=== PATIENT | female | born 1945 ===

== ENCOUNTER 2017-10-13 22:39 | Emergency (ER) | payer MEDICARE, OTHER ==
--- NOTE | 2017-10-14 00:19 | ED PDOC ---
HPI: Abdomen Time Seen by Provider: 10/13/17 23:26 Chief Complaint (Nursing): Abdominal Pain Chief Complaint (Provider): Abdominal Pain History Per: Patient History/Exam Limitations: no limitations Onset/Duration Of Symptoms: Days (x3 weeks) Current Symptoms Are (Timing): Still Present Location Of Pain/Discomfort: Diffuse Quality Of Discomfort: "Pain" Associated Symptoms: Constipation Additional Complaint(s): 72 year old female with a history of dm, htn, seizure and end-stage renal disease reports to the ED complaining of diffuse abdominal pain and constipation onset 3 weeks. Patient reports she has not had a bowel movement in 3 weeks, but has not taken anything for the constipation. She states she has associated rectal pain and decreased appetite but denies nausea, vomiting, urinary symptoms, black or bloody stools. Patient is on dialysis. PMD Dr. Gu Past Medical History Reviewed: Historical Data, Nursing Documentation, Vital Signs Vital Signs: Last Vital Signs Temp 98.4 F 10/14/17 02:04 Pulse 88 10/14/17 02:04 Resp 18 10/14/17 02:04 BP 130/69 10/14/17 02:04 Pulse Ox 100 10/14/17 02:04 - Medical History PMH: Diabetes, Gastritis, HTN, End Stage Renal Disease (Hemodialysis M, W, F), Chronic Kidney Disease, Seizures Denies: Alzheimer's Disease, Anemia, Anxiety, Arthritis, Asthma, Atrial Fibrillation, Bipolar Disorder, Bronchitis, CAD, Cardia Arrhythmia, CHF, COPD, Crohn's Disease, Dementia, Depression, Diverticulitis, Emphysema, Fractures, Gall Bladder Disease, HIV, Hypercholesterolemia, Hyperthyroidism, Hypothyroidism , Kidney Stones, Migraine, Mitral Valve Prolapse, Multiple Sclerosis, Osteoporosis, Pancreatitis, Paranoia, Parkinson's Disease, Peripheral Edema, Pneumonia, Post Traumatic Stress Disorder, Pulmonary Embolism, Rheumatoid Arthritis, Schizophrenia, Sickle Cell Disease, Sexually Transmitted Disease, Sleep Apnea, TIA - Surgical History Surgical History: Denies: Pacemaker Other surgeries: Left AV fistula - Family History Family History: States: No Known Family Hx - Social History Current smoker - smoking cessation education provided: No Ex-Smoker (has not smoked in the last 12 months): No Alcohol: None Drugs: Denies - Immunization History Hx Tetanus Toxoid Vaccination: No Hx Influenza Vaccination: No Hx Pneumococcal Vaccination: No - Home Medications Home Medications: Ambulatory Orders Medication Instructions Recorded Insulin Aspart Mix [novolog Mix 10 unit SC BID 04/20/14 70/30] Phenytoin Sodium Extended 100 mg PO TID 04/20/14 [Dilantin] Amoxicillin [Amoxil 500 mg Cap] 500 mg PO BID 08/05/17 Butalbital/Aspirin/Caffeine 1 tab PO Q6 PRN 08/05/17 [Uhdwmm-Parevtm-Ejmfs 50-325-40] Levofloxacin [Levaquin] 500 mg PO DAILY 08/05/17 Omeprazole 20 mg PO BID 08/05/17 Polyethylene Glycol 3350 [Miralax] 17 g PO QAM PRN #7 pkg 10/14/17 - Allergies Allergies/Adverse Reactions: Allergies Allergy/AdvReac Type Severity Reaction Status Date / Time No Known Allergies Allergy Verified 10/13/17 22:54 Review of Systems ROS Statement: Except As Marked, All Systems Reviewed And Found Negative Gastrointestinal: Positive for: Abdominal Pain, Constipation Physical Exam - Reviewed Nursing Documentation Reviewed: Yes Vital Signs Reviewed: Yes - Physical Exam Appears: Positive for: Non-toxic, In Acute Distress (painful) Head Exam: Positive for: ATRAUMATIC, NORMOCEPHALIC Skin: Positive for: Warm, Dry ENT: Negative for: Pharyngeal Erythema, Tonsillar Exudate Neck: Positive for: Painless ROM, Supple Cardiovascular/Chest: Positive for: Regular Rate, Rhythm Respiratory: Positive for: Normal Breath Sounds. Negative for: Respiratory Distress Gastrointestinal/Abdominal: Positive for: Tenderness (mild diffuse tenderness to palpation ), Distended (softly). 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 Negative for: Deformity Lymphatic: Negative for: Adenopathy Neurologic/Psych: Positive for: Alert. Negative for: Motor/Sensory Deficits - Laboratory Results Result Diagrams: 10/13/17 23:55 10/13/17 23:55 Medical Decision Making Medical Decision Making: Time: 23:38 Initial Impression: abdominal Differential diagnoses include but are not limited to: constipation, obstruction , colitis, or diverticulitis Initial Plan: --CMP --Lact acid -- Lipase --Urine dip --CBC with differentials --Obstructive Series XR --Occult Blood, Stool Scribe Attestation: Documented by Britany Silverman, acting as a scribe for Kaylee Cotton MD Provider Scribe Attestation: All medical record entries made by the Scribe were at my direction and personally dictated by me. I have reviewed the chart and agree that the record accurately reflects my personal performance of the history, physical exam, medical decision making, and the department course for this patient. I have also personally directed, reviewed, and agree with the discharge instructions and disposition. Disposition - Clinical Impression Clinical Impression: Constipation - Disposition Disposition: Transfer of Care Disposition Time: 00:00 Condition: STABLE Prescriptions: Polyethylene Glycol 3350 [Miralax] 17 g PO QAM PRN #7 pkg PRN Reason: Constipation Instructions: Constipation in Adults Forms: [employer] (Greek) Print Language: GIBRALTARIAN Patient Signed Over To: Matty Perez Handoff Comments: Pending ER workup, reassessment and final disposition
[2017-10-14 00:23] LABS: BASO # 0.1 K/uL (0.0-0.2); EOS # 0.2 K/uL (0.0-0.7); EOS % 2.1 % (0.0-4.0); HEMOGLOBIN 12.3 g/dL (12.0-16.0); LYMPH # 1.7 K/uL (1.0-4.3); LYMPH % 16.8 % (20.0-40.0); MEAN CELL VOLUME 89.1 fl (81.0-99.0); MEAN CORPUSCULAR HGB CONC 32.5 g/dL (33.0-37.0); MEAN PLATELET VOLUME 9.9 fl (7.2-11.7); MONO # 1.2 K/uL (0.0-0.8); MONO % 12.2 % (0.0-10.0); NEUT # 6.9 K/uL (1.8-7.0); NEUT % 67.9 % (50.0-75.0); RBC 4.25 Mil/uL (3.80-5.20); RED CELL DISTRIBUTION WIDTH 17.6 % (11.5-14.5); WHITE BLOOD COUNT 10.2 K/uL (4.8-10.8)
--- NOTE | 2017-10-14 00:27 | ED PDOC ---
- Laboratory Results Result Diagrams: 10/13/17 23:55 10/13/17 23:55 Medical Decision Making Medical Decision Making: Time: 00:00 --Patient signed out to this provider by Dr. Cotton, pending XR, labs and reevaluation, Time: 00:45 --Chest series shows no active disease --Abdomen series shows gross amounts of stool in colon and rectum, but no free air or fluid bubbles. Time: 1:50 --Labs showed no clinically significant results except elevated creatinine, which is consistent with end stage renal disease. Patient feels better after complete enema and had a large bowel movement. She is ready for discharge home. Diagnosis constipation. Scribe Attestation: Documented by Britany Silverman, acting as a scribe for Matty Perez MD Provider Scribe Attestation: All medical record entries made by the Scribe were at my direction and personally dictated by me. I have reviewed the chart and agree that the record accurately reflects my personal performance of the history, physical exam, medical decision making, and the department course for this patient. I have also personally directed, reviewed, and agree with the discharge instructions and disposition. Disposition - Clinical Impression Clinical Impression: Constipation - POA Present On Arrival: None - Disposition Disposition: Routine/Home Disposition Time: 01:50 Condition: STABLE Prescriptions: Polyethylene Glycol 3350 [Miralax] 17 g PO QAM PRN #7 pkg PRN Reason: Constipation Instructions: Constipation in Adults Forms: [employer] (Kenyan) Print Language: GRENADIAN
[2017-10-14 00:29] LABS: ALB/GLOB RATIO 1.1 (1.0-2.1); ALBUMIN 4.1 g/dL (3.5-5.0); CALCIUM 9.1 mg/dL (8.4-10.2)
[2017-10-14 02:05] VITALS: BP 130/69; PULSE 88; RESP 18; TEMP 98.4; O2SAT 100
--- NOTE | 2017-10-14 10:07 | RAD ---
Date of service: 10/14/2017 PROCEDURE: Radiographs of the chest and abdomen (obstructive series) HISTORY: abd pain r/o sbo COMPARISON: Chest radiograph 08/05/2017. TECHNIQUE: AP radiograph of the chest, with upright and supine radiographs of the abdomen. FINDINGS: CHEST: Lungs: No infiltrate bilaterally. Limited linear fibrotic changes are reiterated at the inferior left lung zone. Cardiovascular: Stable mild cardiomegaly. No definite pulmonary vascular congestion. Pleura: No pleural fluid. No pneumothorax. Other findings: Left axilla/proximal upper extremity wallstents. ABDOMEN AND PELVIS: Bowel: Nonobstructive bowel gas pattern is appreciated. Prominent fecal loading is seen throughout the colon and may indicate constipation. Free air: None. Bones: Unremarkable. Other findings: No definite abnormal internal calcifications. IMPRESSION: 1. Nonobstructive bowel gas pattern, however, prominent fecal loading throughout the colon may indicate constipation. No free intraperitoneal gas. 2. Stable mild cardiomegaly. No pulmonary vascular congestion. Limited fibrosis left base laterally.
== END 2017-10-14 02:04 | disposition home or self-care (01) ==
LOC: H.ER 22:39
DX: K59.00 Constipation, unspecified (principal); N18.6 End stage renal disease; Z99.2 Dependence on renal dialysis; I12.0 Hypertensive chronic kidney disease with stage 5 chronic kidney disease or end stage renal disease; Z79.4 Long term (current) use of insulin; Z79.82 Long term (current) use of aspirin
CPT/HCPCS: 74022; 80053; 83605; 83690; 85025; 99284; G0328

== ENCOUNTER 2017-10-15 22:42 | Emergency (ER) | payer MEDICARE, OTHER ==
--- NOTE | 2017-10-16 01:26 | ED PDOC ---
HPI: Abdomen Time Seen by Provider: 10/15/17 22:53 Chief Complaint (Nursing): GI Problem Chief Complaint (Provider): GI Problem History Per: Patient History/Exam Limitations: no limitations Onset/Duration Of Symptoms: Days (x3) Current Symptoms Are (Timing): Still Present Additional Complaint(s): 72 year old female arrives to ED with complaint of constipation associated with mild lower abdominal discomfort and rectal pain ongoing for 3 days. Reports she normally has a BM QD. Patient states she was given Rx for constipation, which she took today, but with no improvement. Of note, patient is due for hemodialysis tomorrow. Otherwise: (-) fever, (-) chills, (-) nausea, (-) vomiting or (-) urinary symptoms. PMD: Dr. Noreen Gu Past Medical History Reviewed: Historical Data, Nursing Documentation, Vital Signs Vital Signs: Last Vital Signs Temp 98.9 F 10/15/17 22:45 Pulse 81 10/15/17 22:45 Resp 16 10/15/17 22:45 BP 187/83 H 10/15/17 22:45 Pulse Ox 99 10/16/17 01:37 - Medical History PMH: Diabetes, Gastritis, HTN, End Stage Renal Disease (Hemodialysis M, W, F), Chronic Kidney Disease, Seizures Denies: Alzheimer's Disease, Anemia, Anxiety, Arthritis, Asthma, Atrial Fibrillation, Bipolar Disorder, Bronchitis, CAD, Cardia Arrhythmia, CHF, COPD, Crohn's Disease, Dementia, Depression, Diverticulitis, Emphysema, Fractures, Gall Bladder Disease, HIV, Hypercholesterolemia, Hyperthyroidism, Hypothyroidism , Kidney Stones, Migraine, Mitral Valve Prolapse, Multiple Sclerosis, Osteoporosis, Pancreatitis, Paranoia, Parkinson's Disease, Peripheral Edema, Pneumonia, Post Traumatic Stress Disorder, Pulmonary Embolism, Rheumatoid Arthritis, Schizophrenia, Sickle Cell Disease, Sexually Transmitted Disease, Sleep Apnea, TIA - Surgical History Surgical History: Denies: Pacemaker - Family History Family History: States: Unknown Family Hx - Social History Current smoker - smoking cessation education provided: No Ex-Smoker (has not smoked in the last 12 months): No Alcohol: None Drugs: Denies - Immunization History Hx Tetanus Toxoid Vaccination: No Hx Influenza Vaccination: No Hx Pneumococcal Vaccination: No - Home Medications Home Medications: Ambulatory Orders Medication Instructions Recorded Insulin Aspart Mix [novolog Mix 10 unit SC BID 01/30/15 70/30] Phenytoin Sodium Extended 100 mg PO TID 04/20/14 [Dilantin] Amoxicillin [Amoxil 500 mg Cap] 500 mg PO BID 08/05/17 Butalbital/Aspirin/Caffeine 1 tab PO Q6 PRN 08/05/17 [Cfdufz-Evjnjwi-Nhgbg 50-325-40] Levofloxacin [Levaquin] 500 mg PO DAILY 08/05/17 Omeprazole 20 mg PO BID 08/05/17 Polyethylene Glycol 3350 [Miralax] 17 g PO QAM PRN #7 pkg 10/14/17 Polyethylene Glycol 3350 [Miralax] 17 pow PO DAILY #20 each 10/16/17 - Allergies Allergies/Adverse Reactions: Allergies Allergy/AdvReac Type Severity Reaction Status Date / Time No Known Allergies Allergy Verified 10/13/17 22:54 Review of Systems ROS Statement: Except As Marked, All Systems Reviewed And Found Negative Constitutional: Negative for: Fever, Chills Gastrointestinal: Positive for: Abdominal Pain (lower), Constipation, Rectal Pain. Negative for: Nausea, Vomiting Genitourinary Female: Negative for: Dysuria, Incontinence, Hematuria Physical Exam - Reviewed Nursing Documentation Reviewed: Yes Vital Signs Reviewed: Yes - Physical Exam Comments: GENERAL APPEARANCE: Patient is awake, alert, oriented x 3, in no distress. SKIN: Warm, dry; (-) cyanosis. EYES: (-) conjunctival pallor, (-) scleral icterus. ENMT: Mucous membranes moist. NECK: (-) tenderness, (-) stiffness, (-) lymphadenopathy. CHEST AND RESPIRATORY: (-) rales, (-) rhonchi, (-) wheezes; breath sounds equal bilaterally. HEART AND CARDIOVASCULAR: (-) irregularity; (-) murmur, (-) gallop. ABDOMEN AND GI: (+) Mild distention, (+) soft. Bowel sounds active; (-) tenderness. (-) guarding, (-) rebound, (-) palpable masses, (-) CVA tenderness. RECTAL: Performed with DIE MECHANIC present as screen handler. (+) Hard stools, (-) fecal impaction, (-) guaiac test. EXTREMITIES: (-) deformity, (-) edema, (+) distal pulses. NEURO AND PSYCH: Mental status as above; (-) focal findings. - ECG O2 Sat by Pulse Oximetry: 99 (RA) Pulse Ox Interpretation: Normal Medical Decision Making Medical Decision Making: Initial Impression: Abdominal pain; constipation Initial Plan: * Xray obstructive series * Enulose 20gm PO * Fleet enema 135ml MI Time: 2340 --Xray obstructive series: interpreted by PA. Moderate constipation noted. Non- specific bowel patterns. On re-evaluation, patient reports improvement of symptoms, denies any abdominal pain, patient had a few BMs in the ER. On exam, patient remains AAOx3, in no acute distress. Diagnostic results d/w the patient in great detail. Diagnosis of constipation d/ w the patient. Advised to increase intake of fiber rich foods and do some light daily exercise such as 30 mins of brisk walking Based on history, exam and diagnostic results, plan will be for outpatient follow up. Patient instructed to follow-up with pmd in 1-2 days without fail. Advised to take medication as prescribed. Return to the emergency room at any time for any new or worsening symptoms. Patient states she fully agrees with and understands discharge instructions. States that she agrees with the plan and disposition. Verbalized and repeated discharge instructions and plan. I have given the patient opportunity to ask any additional questions. Scribe Attestation: Documented by Shirley Radford, acting as a scribe for Chen Grande PA-C. Provider Scribe Attestation: All medical record entries made by the Scribe were at my direction and personally dictated by me. I have reviewed the chart and agree that the record accurately reflects my personal performance of the history, physical exam, medical decision making, and the department course for this patient. I have also personally directed, reviewed, and agree with the discharge instructions and disposition. Disposition - Clinical Impression Clinical Impression: Constipation - Patient ED Disposition Is Patient to be Admitted: No Counseled Patient/Family Regarding: Studies Performed, Diagnosis, Need For Followup, Rx Given - Disposition Disposition: Routine/Home Disposition Time: 02:15 Condition: STABLE Additional Instructions: Kay por dejarnos atenderlo hoy. Usted fue tratado por estreimiento. La atencin mdica de emergencia que recibi hoy se dirigi a los sntomas agudos de presentacin. Aumente la ingesta de alimentos ricos en fibra y verna algunos ejercicios diarios ligeros, jamee caminar sergey 30 minutos. Si le prescribieron algn medicamento, por favor llnelo y d jamee indicado. Meera s ntomas pueden tardar varios parekh en resolverse. Regrese al Departamento de Emergencia en cualquier momento si los sntomas empeoran, no mejoran o si surge algn otro problema. Por favor, pngase en contacto con chua mdico en 2 parekh para meño nueva evaluaci n y seguimiento. Lleve todos los documentos que recibi al momento del pablo junto con los medicamentos a chua visita de seguimiento. Nuestro tratamiento no puede reemplazar la atencin mdica en curso por parte de un proveedor de atenci n primaria (PCP) fuera del departamento de emergencias. Kay por permitir que el equipo de [employer] sea parte de chua cuidado hoy. Prescriptions: Polyethylene Glycol 3350 [Miralax] 17 pow PO DAILY #20 each Instructions: Constipation in Adults Forms: [employer] (Nigerien) Print Language: ESTONIAN
[2017-10-16 02:42] VITALS: BP 149/67; PULSE 79; RESP 18; TEMP 98.8; O2SAT 94
--- NOTE | 2017-10-16 10:23 | RAD ---
Date of service: 10/15/2017 PROCEDURE: Radiographs of the chest and abdomen (obstructive series) HISTORY: constipation COMPARISON: Obstructive series dated 10/14/2017. TECHNIQUE: AP radiograph of the chest, with upright and supine radiographs of the abdomen. FINDINGS: CHEST: Lungs: Clear. Cardiovascular: Atherosclerotic aortic calcifications. Cardiomediastinal silhouette stably enlarged. Pleura: No pleural fluid. No pneumothorax. Other findings: Partially imaged left axillary region vascular stent. ABDOMEN AND PELVIS: Bowel: Prominent amount of retained colonic stool. No evidence of mechanical obstruction. Free air: None. Bones: Degenerative changes. Other findings: None. IMPRESSION: Prominent amount of retained colonic stool.
== END 2017-10-16 02:40 | disposition home or self-care (01) ==
LOC: H.ER 22:42
DX: K59.00 Constipation, unspecified (principal); I12.0 Hypertensive chronic kidney disease with stage 5 chronic kidney disease or end stage renal disease; Z79.4 Long term (current) use of insulin

== ENCOUNTER 2017-12-07 10:45 | Inpatient (IN) | payer MEDICARE, OTHER ==
[2017-12-07 11:16] VITALS: BMI 25.0
[2017-12-07] MEDS ORDERED: Albuterol-Ipratrop 3 mg / 0.5 (3 ml) UD IH STA ×2 (11:16)
[2017-12-07] MEDS ORDERED: Albuterol-Ipratrop 3 mg / 0.5 (3 ml) UD INH STA (11:16)
[2017-12-07] MEDS ORDERED: Piperacillin/Tazobact 4.5 GM in Sodium Chloride 0.9% 100 ML IV STA (11:27)
[2017-12-07] MEDS ORDERED: Sodium Chloride 0.9% 500 ML IV SCH (11:30)
--- NOTE | 2017-12-07 11:30 | ED PDOC ---
HPI: SOB/CHF/COPD Time Seen by Provider: 12/07/17 10:52 Chief Complaint (Nursing): Shortness Of Breath Chief Complaint (Provider): Shortness of breath History Per: Patient History/Exam Limitations: clinical condition Onset/Duration Of Symptoms: Hrs (today) Current Symptoms Are (Timing): Still Present Additional Complaint(s): Alison Prakash is a 72 year old female, with a past medical history of HTN, diabetes and end stage renal disease, who was brought to the emergency department by EMS for evaluation of shortness of breath. Patient was being picked up by transport today for dialysis, but on arrival they noticed she was short of breath and was brought directly to the emergency department missing her dialysis today. She was noted to be 90% O2 sat on room air and has improved with nasal cannula. Limited history due to patient being uncooperative. PMD: Dr. Gutierrez Past Medical History Reviewed: Historical Data, Nursing Documentation, Vital Signs Vital Signs: Last Vital Signs Temp 100.8 F H 12/07/17 12:24 Pulse 85 12/07/17 10:58 Resp 39 H 12/07/17 10:50 BP 164/68 H 12/07/17 12:02 Pulse Ox 99 12/07/17 12:21 - Medical History PMH: Diabetes, Gastritis, HTN, End Stage Renal Disease (Hemodialysis M, W, F), Chronic Kidney Disease, Seizures Denies: Alzheimer's Disease, Anemia, Anxiety, Arthritis, Asthma, Atrial Fibrillation, Bipolar Disorder, Bronchitis, CAD, Cardia Arrhythmia, CHF, COPD, Crohn's Disease, Dementia, Depression, Diverticulitis, Emphysema, Fractures, Gall Bladder Disease, HIV, Hypercholesterolemia, Hyperthyroidism, Hypothyroidism , Kidney Stones, Migraine, Mitral Valve Prolapse, Multiple Sclerosis, Osteoporosis, Pancreatitis, Paranoia, Parkinson's Disease, Peripheral Edema, Pneumonia, Post Traumatic Stress Disorder, Pulmonary Embolism, Rheumatoid Arthritis, Schizophrenia, Sickle Cell Disease, Sexually Transmitted Disease, Sleep Apnea, TIA - Surgical History Surgical History: Denies: Pacemaker - Family History Family History: States: Unknown Family Hx - Immunization History Hx Tetanus Toxoid Vaccination: No Hx Influenza Vaccination: No Hx Pneumococcal Vaccination: No - Home Medications Home Medications: Ambulatory Orders Medication Instructions Recorded Acetaminophen with Codeine 1 tab PO Q6 PRN 12/07/17 [Tylenol with Codeine #3 Tablet] NIFEdipine ER [Procardia XL] 60 mg PO DAILY 12/07/17 Phenytoin, Extended [Dilantin] 100 mg PO Q8 12/07/17 Zolpidem [Ambien] 10 mg PO HS 12/07/17 traMADol [Ultram] 50 mg PO Q12 PRN 12/07/17 - Allergies Allergies/Adverse Reactions: Allergies Allergy/AdvReac Type Severity Reaction Status Date / Time No Known Allergies Allergy Verified 10/24/17 21:01 Review of Systems Review Of Systems: ROS cannot be obtained secondary to pt's inabilty to answer questions. Respiratory: Positive for: Shortness of Breath Physical Exam - Reviewed Nursing Documentation Reviewed: Yes Vital Signs Reviewed: Yes - Physical Exam Appears: Positive for: Uncomfortable Head Exam: Positive for: ATRAUMATIC, NORMOCEPHALIC Skin: Positive for: Normal Color, Warm, Dry Eye Exam: Positive for: Normal appearance, PERRL ENT: Positive for: Normal ENT Inspection Neck: Positive for: Painless ROM, Supple Cardiovascular/Chest: Positive for: Regular Rate, Rhythm. Negative for: Murmur Respiratory: Positive for: Decreased Breath Sounds (coarse breath sounds bilaterally), Other (coarse b/l) Gastrointestinal/Abdominal: Positive for: Normal Exam, Soft. Negative for: Tenderness, Guarding, Rebound Back: Positive for: Normal Inspection. Negative for: L CVA Tenderness, R CVA Tenderness Extremity: Positive for: Normal ROM (moving at will). Negative for: Tenderness , Pedal Edema, Deformity, Swelling Neurologic/Psych: Positive for: Alert, Other (She opens mouth and is able to lift arms and legs. Patient is uncooperative and only responds to questions & commands she wishes to.). Negative for: Motor/Sensory Deficits, Aphasia, Facial Droop - Laboratory Results Result Diagrams: 12/07/17 11:38 12/07/17 11:38 Interpretation Of Abn Labs: 8 k - ECG ECG: Positive for: Interpreted By Me, Viewed By Me Interpretation Of Abn EKG: peak T waves; nonspecific changes O2 Sat by Pulse Oximetry: 99 (RA) Pulse Ox Interpretation: Normal - Radiology X-Ray: Interpreted by Me, Viewed By Me X-Ray Interpretation: Cardiomegaly, Other (vascular congestion) - Progress ED Course And Treament: 1235: Spoke with Dr. Cheema for ICU. Will admit. Antibiotics already given, but he will investigate further for source of possible infection after dialysis finished. 1256: Stable. AAOx3. Smiling and communicating. Spoke with Dr. Talamantes. Will consult and give dialysis orders on the floor. Agree with current tx. - Critical Care Total Time (In Min): 60 Documented Critical Care: Time excludes all time spent performint seperately billable procedures Medical Decision Making Medical Decision Making: Time: 10:52 Initial Impression: Shortness of breath Initial Plan: --ABG --EKG --B-Type Natriuretic Peptide --CMP --Dilantin --Magnesium --Phosphorus --Troponin I --CBC w/ differential --PTT --PT --Chest portable [RAD] --Duoneb 3 ml INH --Duoneb 3 ml INH --Duoneb 3 ml INH --Sodium Chloride 500 ml IV 100 mls/hr --Tylenol 325 mg tab 975 mg IL --Blood culture --Urine culture --Urinalysis --Reevaluation 11:40 -Potassium on ABG 7.2, pH 7.46, pO2 108, pCO2 38. 12:10 -Patient got treatment for hyperkalemia based on the ABG potassium and peaked T waves. Amp of bicarbonate, amp of calcium gluconate and amp of D50. 12:15 -Post treatment for potassium, patient fully awake, alert and communicated. She is requesting Tylenol orally. ----- Scribe Attestation: Documented by Mendoza Pena, acting as a scribe for Law Moore MD. Provider Scribe Attestation: All medical record entries made by the Scribe were at my direction and personally dictated by me. I have reviewed the chart and agree that the record accurately reflects my personal performance of the history, physical exam, medical decision making, and the department course for this patient. I have also personally directed, reviewed, and agree with the discharge instructions and disposition. Disposition - Clinical Impression Clinical Impression: [id number] renal failure, CHF exacerbation, Sepsis, Hyperkalemia - Patient ED Disposition Is Patient to be Admitted: Yes Counseled Patient/Family Regarding: Studies Performed, Diagnosis - Disposition Disposition Time: 12:45 Condition: GUARDED - Pt Status Changed To: Hospital Disposition Of: Inpatient - Admit Certification Admit to Inpatient:: After my assessment, the patient will require hospitalization for at least two midnights. This is because of the severity of symptoms shown, intensity of services needed, and/or the medical risk in this patient being treated as an outpatient. - POA Present On Arrival: None
[2017-12-07] MEDS ORDERED: Albuterol-Ipratrop 3 mg / 0.5 (3 ml) UD ONE (11:31)
[2017-12-07 11:36] LABS: ABG ALLEN TEST YES; ARTERIAL BLOOD GAS HCO3 27.3 mmol/L (21-28); ARTERIAL BLOOD GAS O2 SAT 98.6 % (95-98); ARTERIAL BLOOD GAS PCO2 38 mm/Hg (35-45); ARTERIAL BLOOD GAS PH 7.46 (7.35-7.45); ARTERIAL BLOOD GAS PO2 108 mm/Hg (80-100); ARTERIAL BLOOD GAS TCO2 28.2 mmol/L (22-28)
[2017-12-07] MEDS ORDERED: Dextrose 50% SYRINGE Inj (50 ml) IVP ONE (11:39)
[2017-12-07] MEDS ORDERED: Insulin Regular 100 units/ml IV STA (11:39)
[2017-12-07] MEDS ORDERED: Calcium Gluconate 4.65 mEq/10 ml Inj IV ONE (11:40)
[2017-12-07] MEDS ORDERED: Sodium Bicarbonate 7.5% (0.9 MEQ/ML) 50ML INJ IV ONE (11:42)
[2017-12-07 11:45] LABS: BASO % 0.1 % (0.0-2.0); EOS % 0.4 % (0.0-4.0); HEMOGLOBIN 12.1 g/dL (12.0-16.0); LYMPH # 0.7 K/uL (1.0-4.3); LYMPH % 5.8 % (20.0-40.0); MEAN CELL VOLUME 84.6 fl (81.0-99.0); MEAN CORPUSCULAR HEMOGLOBIN 27.3 pg (27.0-31.0); MEAN CORPUSCULAR HGB CONC 32.3 g/dL (33.0-37.0); MEAN PLATELET VOLUME 9.3 fl (7.2-11.7); MONO # 0.3 K/uL (0.0-0.8); MONO % 2.3 % (0.0-10.0); NEUT # 10.4 K/uL (1.8-7.0); NEUT % 91.4 % (50.0-75.0); PLATELET COUNT 217 K/uL (130-400); RBC 4.43 Mil/uL (3.80-5.20); RED CELL DISTRIBUTION WIDTH 17.7 % (11.5-14.5); WHITE BLOOD COUNT 11.3 K/uL (4.8-10.8)
[2017-12-07 11:52] LABS: PROTHROMBIN TIME 10.6 Seconds (9.8-13.1)
[2017-12-07 11:54] LABS: PARTIAL THROMBOPLASTIN TIME 29.6 Seconds (25.6-37.1)
[2017-12-07] MEDS ORDERED: Insulin Regular 100 units/ml ONE (11:58)
[2017-12-07] MEDS ORDERED: Dextrose 50% SYRINGE Inj (50 ml) ONE (11:59)
[2017-12-07 12:07] LABS: TROPONIN I 0.06 ng/mL (0.00-0.120)
[2017-12-07 12:09] LABS: ALBUMIN 4.2 g/dL (3.5-5.0)
[2017-12-07] MEDS ORDERED: Sod Polystyrene Sulf 15 gm/60 ml Susp PO STA (12:15)
[2017-12-07] MEDS ORDERED: Vancomycin 1 g Inj ONE (12:34)
[2017-12-07 12:40] LABS: BANDS 3 % (0-2); LYMPHOCYTE 7 % (20-50); MONOCYTE 2 % (0-10); NEUTROPHIL 88 % (42-75); PLATELET ESTIMATE NORMAL (NORMAL); TOTAL CELLS COUNTED 100
[2017-12-07 12:41] LABS: ANISOCYTOSIS SLIGHT
--- NOTE | 2017-12-07 13:51 | RAD ---
Date of service: 12/07/2017 HISTORY: Sepsis Patient COMPARISON: 10/15/2017 FINDINGS: LUNGS: There is airspace disease in the lower lobes PLEURA: No significant pleural effusion identified, no pneumothorax apparent. CARDIOVASCULAR: . There is mild cardiomegaly. OSSEOUS STRUCTURES: No significant abnormalities. VISUALIZED UPPER ABDOMEN: Normal. OTHER FINDINGS: None. IMPRESSION: Mild cardiomegaly. Suspect bibasilar atelectasis.
[2017-12-07] MEDS ORDERED: Sodium Chloride 3% for Inhalation 4 ML VIAL.NEB IH PRN (15:30)
--- NOTE | 2017-12-07 15:35 | CP.PCM.CON ---
History of Present Illness - History of Present Illness History of Present Illness: Infectious Disease Consultation Note- Asked to see this patient at the request of for rule out sepsis. HPI- Patient is a 72 year old female with PMH of DM II, ESRD On HD, HTN, who was brought to the emergency department by EMS for sob as she was being picked up for transport to dialysis and hence pt. was directly brought to ER for further evaluation . On arrival here pt. was noticed to have high potassium and 905 oxygen saturation and fever of 101 and somewhat confused Pt. admitted to ICU for further evaluation and treatment and i'm asked to rule out sepsis. pt. is awake and alert but slightly confused with certain questions. denies any KHAN, + fever, + Sob, no cough, denies any chest pain, pos abd. pain and nausea, denies any diarrhea. Review of Systems - Review of Systems Review of Systems: ROS- + fever, denies any KHAN, + sob, no cough, denies any chest p[ain, + abd pain throughout, + nausea, denies any diarrhea Past Patient History - Infectious Disease Hx of Infectious Diseases: None - Past Medical History & Family History Past Medical History?: Yes - Past Social History Smoking Status: Never Smoked Home Situation {Lives}: With Family - CARDIAC Hx Cardiac Disorders: Yes Hx Angina: No Hx Atrial Fibrillation: No Hx Cardia Arrhythmia: No Hx Circulatory Problems: No Hx Congestive Heart Failure: Yes Hx Heart Attack: No Hx Heart Murmur: No Hx Heart Transplant: No Hx Hypercholesterolemia: No Hx Hypertension: Yes Hx Hypotension: No Hx Internal Defibrillator: No Hx Mitral Valve Prolapse: No Hx Pacemaker: No Hx Peripheral Edema: No Hx Peripheral Vascular Disease: No - PULMONARY Hx Respiratory Disorders: Yes Hx Asthma: No Hx Bronchitis: No Hx Chronic Obstructive Pulmonary Disease (COPD): No Hx Emphysema: No Hx Lung Cancer: No Hx Pneumonia: No Hx Pulmonary Edema: No Hx Pulmonary Embolism: No Hx Respiratory Aspiration: No Hx Respiratory Tract Infection: No Hx Sleep Apnea: No Hx Tuberculosis: No Other/Comment: SOB - NEUROLOGICAL Hx Neurological Disorder: Yes Hx Alzheimer's Disease: No HX Cerebrovascular Accident: No Hx Dementia: No Hx Dizziness: No Hx Meningitis: No Hx Migraine: No Hx Multiple Sclerosis: No Hx Paralysis: No Hx Parkinson's Disease: No Hx Seizures: Yes Hx Syncope: No Hx Transient Ischemic Attacks (TIA): No Hx Vertigo: No Other/Comment: CONFUSED - HEENT Hx HEENT Problems: Yes Hx Blind: No Hx Cataracts: No Hx Deafness: No Hx Difficulty Chewing: No Hx Epistaxis: No Hx Glaucoma: No Hx Macular Degeneration: No Hx Sinusitis: No Other/Comment: GLASSES - RENAL Hx Chronic Kidney Disease: Yes Hx Dialysis: Yes (TUES, THURS, SAT) Type of Dialysis Access: LEFT AV SHUNT Hx Kidney Stones: No Hx Neurogenic Bladder: No Hx Pyelonephritis: No Hx Renal (Kidney) Cancer: No Hx Renal Failure: Yes - ENDOCRINE/METABOLIC Hx Endocrine Disorders: Yes Hx Adrenal Cancer: No Hx Diabetes Insipidus: No Hx Diabetes Mellitus Type 1: No Hx Diabetes Mellitus Type 2: Yes Hx Hyperthyroidism: No Hx Hypothyroidism: No Hx Systemic Lupus Erythematosus: No - HEMATOLOGICAL/ONCOLOGICAL Hx Blood Disorders: No Hx AIDS: No Hx Anemia: No Hx Blood Transfusions: No (UNKNOWN, CONFUSED) Hx Blood Transfusion Reaction: No Hx Bruising: No Hx Cancer: No Hx Chemotherapy: No Hx Cirrhosis: No Hx Gum Bleeding: No Hx Hemophilia: No Hx Hepatitis A: No Hx Hepatitis B: No Hx Hepatitis C: No Hx Human Immunodeficiency Virus (HIV): No Hx Leukemia: No Hx Metastesis: No Hx Shingles: No Hx Sickle Cell Disease: No Hx Unexplained Bleeding: No Hx von Willebrand's Disease: No - INTEGUMENTARY Hx Dermatological Problems: No Hx Basil Cell: No Hx Martell: No Hx Cellulitis: No Hx Eczema: No Hx Melanoma: No Hx Psoriasis: No Hx Squamous Cell: No - MUSCULOSKELETAL/RHEUMATOLOGICAL Hx Musculoskeletal Disorders: Yes Hx Arthritis: No Hx Back Pain: No Hx Degenerative Joint Disease: No Hx Falls: No (unknwon) Hx Fractures: No Hx Gout: No Hx Herniated Disk: No Hx Myasthenia Gravis: No Hx Osteoarthritis: No Hx Osteomyelitis: No Hx Osteoporosis: No Hx Rhabdomyolysis: No Hx Rheumatoid Arthritis: No Hx Spinal Stenosis: No Hx Unsteady Gait: Yes - GASTROINTESTINAL Hx Gastrointestinal Disorders: Yes Hx Bowel Surgery: No Hx Clostridium Difficile: No Hx Colitis: No Hx Colostomy: No Hx Constipation: No Hx Crohn's Disease: No Hx Diarrhea: No Hx Diverticulitis: No Hx Esophageal Varices: No Hx Fatty Liver Disease: No Hx Gall Bladder Disease: No Hx Gastritis: Yes Hx Gastroesophageal Reflux: No Hx Hemorrhoids: No Hx Ileostomy: No Hx Irritable Bowel: No Hx Liver Failure: No Hx Nausea: No Hx Pancreatitis: No HX Swallowing Problems: No Hx Ulcer: No - GENITOURINARY/GYNECOLOGICAL Hx Genitourinary Disorders: Yes Hx Bladder Cancer: No Hx Bladder Stone: No Hx Cervical Cancer: No Hx Hematuria: No Hx Incontinence: No Hx Ovarian Cancer: Yes Hx Postmenopausal Bleeding: No Hx Reproductive Disorders: No Hx Sexually Transmitted Disorders: No Hx Uterine Cancer: No Hx Urinary Tract Infection: No - PSYCHIATRIC Hx Psychophysiologic Disorder: Yes Hx Anxiety: No Hx Bipolar Disorder: No Hx Depression: No Hx Emotional Abuse: No Hx Hallucinations: No Hx Panic Symptoms: No Hx Paranoia: No Hx Post Traumatic Stress Disorder: No Hx Psychosis: No Hx Physical Abuse: No Hx Schizophrenia: No Hx Sexual Abuse: No Hx Substance Use: No Other/Comment: CONFUSED - SURGICAL HISTORY Hx Surgeries: Yes Hx Abdominal Aortic Aneurysm Repair: No Other/Comment: left AVF, 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) - ANESTHESIA Hx Anesthesia: Yes Hx Anesthesia Reactions: No Hx Malignant Hyperthermia: No Has any member of the family had a problem w/ anesthesia?: No (UNKNOWN) Meds Allergies/Adverse Reactions: Allergies Allergy/AdvReac Type Severity Reaction Status Date / Time No Known Allergies Allergy Verified 10/24/17 21:01 - Medications Medications: Current Medications Heparin Sodium (Porcine) (Heparin) 5,000 units SC Q8 MOSHE PRN Reason: Protocol Physical Exam - Constitutional Appears: No Acute Distress - Head Exam Head Exam: ATRAUMATIC - Eye Exam Eye Exam: EOMI, PERRL - ENT Exam ENT Exam: Normal Oropharynx - Neck Exam Neck exam: Positive for: Full Rom - Respiratory Exam Additional comments: bibasilar crackles no wheezing slight tachypnea - Cardiovascular Exam Cardiovascular Exam: RRR, +S1, +S2 - GI/Abdominal Exam GI & Abdominal Exam: Normal Bowel Sounds, Soft Additional comments: + mild tenderness throughtout abdomen no guarding, no rebound no CVA tenderness - Extremities Exam Extremities exam: Positive for: normal inspection - Neurological Exam Additional comments: awake but slightly confused Results - Vital Signs Recent Vital Signs: Last Vital Signs Temp 100.8 F H 12/07/17 12:35 Pulse 89 12/07/17 14:52 Resp 25 H 12/07/17 14:52 BP 148/68 12/07/17 14:30 Pulse Ox 96 12/07/17 14:52 - Labs Result Diagrams: 12/08/17 04:30 12/08/17 04:30 Labs: Laboratory Results - last 24 hr 12/07/17 12/07/17 12/07/17 11:00 11:24 11:24 WBC RBC Hgb Hct MCV MCH MCHC RDW Plt Count MPV Neut % (Auto) Lymph % (Auto) Campbell % (Auto) Eos % (Auto) Baso % (Auto) Neut # (Auto) Lymph # (Auto) Campbell # (Auto) Eos # (Auto) Baso # (Auto) Neutrophils % (Manual) Band Neutrophils % Lymphocytes % (Manual) Monocytes % (Manual) Platelet Estimate Anisocytosis (manual) PT 10.6 INR 1.0 APTT 29.6 pCO2 38 pO2 108 H HCO3 27.3 ABG pH 7.46 H ABG Total CO2 28.2 H ABG O2 Saturation 98.6 H ABG Base Excess 3.1 H Zion Test Yes ABG Potassium 7.2 H* A-a O2 Difference 101.0 Sodium 131.0 L Chloride 99.0 Glucose 109 H Lactate 0.8 Vent Mode Nc FiO2 36.0 Blood Gas Comments Nc 4lpm Crit Value Called To Rosa waggoner Crit Value Called By Breanne Crit Value Read Back Y Blood Gas Notified Time 1136 Potassium Carbon Dioxide Anion Gap BUN Creatinine Est GFR ( Amer) Est GFR (Non-Af Amer) POC Glucose (mg/dL) 112 H Random Glucose Calcium Phosphorus Magnesium Total Bilirubin AST ALT Alkaline Phosphatase Troponin I NT-Pro-B Natriuret Pep Total Protein Albumin Globulin Albumin/Globulin Ratio Arterial Blood Potassium 7.2 H* Phenytoin 12/07/17 12/07/17 12/07/17 11:38 11:38 11:38 WBC 11.3 H RBC 4.43 Hgb 12.1 Hct 37.5 MCV 84.6 D MCH 27.3 MCHC 32.3 L RDW 17.7 H Plt Count 217 D MPV 9.3 Neut % (Auto) 91.4 H Lymph % (Auto) 5.8 L Campbell % (Auto) 2.3 Eos % (Auto) 0.4 Baso % (Auto) 0.1 Neut # (Auto) 10.4 H Lymph # (Auto) 0.7 L Campbell # (Auto) 0.3 Eos # (Auto) 0.0 Baso # (Auto) 0.0 Neutrophils % (Manual) 88 H Band Neutrophils % 3 H Lymphocytes % (Manual) 7 L Monocytes % (Manual) 2 Platelet Estimate Normal Anisocytosis (manual) Slight PT INR APTT pCO2 pO2 HCO3 ABG pH ABG Total CO2 ABG O2 Saturation ABG Base Excess Zion Test ABG Potassium A-a O2 Difference Sodium 136 Chloride 96 L Glucose Lactate Vent Mode FiO2 Blood Gas Comments Crit Value Called To Crit Value Called By Crit Value Read Back Blood Gas Notified Time Potassium 8.0 H* D Carbon Dioxide 25 Anion Gap 23 H BUN 66 H Creatinine 9.1 H* D Est GFR ( Amer) 5 Est GFR (Non-Af Amer) 4 POC Glucose (mg/dL) Random Glucose 108 H Calcium 9.0 Phosphorus 6.7 H Magnesium 2.4 H Total Bilirubin 1.0 AST 40 H ALT 27 Alkaline Phosphatase 155 H Troponin I 0.0600 NT-Pro-B Natriuret Pep 21941 H Total Protein 8.4 H Albumin 4.2 Globulin 4.2 H Albumin/Globulin Ratio 1.0 Arterial Blood Potassium Phenytoin 4.1 L Accession No. : [id number] Patient Name / ID : TANYA JOLLEY / [id number] Exam Date : 12/07/2017 11:32:58 ( Approved ) Study Comment : Sex / Age : F / 72Y Creator : Radha Cruz MD Dictator : Radha Cruz MD Waiver Analyst : Break And Load Operator : Radha Cruz MD Approver2 : Report Date : 12/07/2017 13:49:53 My Comment : Date of service: 12/07/2017 HISTORY: Sepsis Patient COMPARISON: 10/15/2017 FINDINGS: LUNGS: There is airspace disease in the lower lobes PLEURA: No significant pleural effusion identified, no pneumothorax apparent. CARDIOVASCULAR: . There is mild cardiomegaly. OSSEOUS STRUCTURES: No significant abnormalities. VISUALIZED UPPER ABDOMEN: Normal. OTHER FINDINGS: None. IMPRESSION: Mild cardiomegaly. Suspect bibasilar atelectasis. Assessment & Plan (1) Chronic kidney disease with end stage renal failure on dialysis Status: Acute (2) [id number] renal failure Status: Acute (3) Hyperkalemia Status: Acute Priority: High (4) Fever Status: Acute - Assessment and Plan (Free Text) Assessment: A/P- 72 year old female with PMH of DM II, ESRD on HD, admitted with sob and resp distress and fever. etiology of the fever unclear at this time, however, pulmonary etiology such as pneumonia likely etiology in light of sob, low Oxygen sat and bibasilar crackles. also advise to get staright cath urinalysis and urine cx to r/o urosepsis . Plan- check blood cx x 2. check UA and urine cx ( straightcath as pt. is anuric). check sputum cx. check mycoplasma serology and Legionella AG. continue with zosyn and VAnco empirically as started by primary team to cover for healthcare associated pneumonia. add zithromax to cover for atypicals pending further results. HD as per renal team All above d/w patient at length. Thank you for allowing me to take part in the care of this patient. ICU time 50 minutes.
--- NOTE | 2017-12-07 16:18 | CARD ---
APPROVED REPORT Date of service: 12/07/2017 <Conclusion> Sinus rhythm with 1st degree AV block Nonspecific intraventricular conduction delay Nonspecific ST abnormality Abnormal ECG
--- NOTE | 2017-12-07 17:23 | CP.CCUPN ---
CCU Subjective - Physician Review Subjective (Free Text): 12/07/17 17:27 72 Years old Female with PMHx of HTN, Diabetes, Gastritis, Chronic Kidney Disease, Seizures and End Stage Renal Disease (Hemodialysis M, W, F) Who presented to the Emergency department by EMS for evaluation of shortness of breath. Patient was scheduled for her HD today but when the transport came to pick her up for dialysis, she was noticed to be in distress, complaining of shortness of breath and was brought directly to the emergency department Labs revealed hyperkalemia and EKG revealed peaked T waves for which he received Amp of bicarbonate, amp of calcium gluconate and amp of D50. Patient also had fever in the ER, Antibiotics Vanco and Zosyn was given, but no culture sent CX-Ray showed Cardiomegaly and pulmonary vascular congestion ID consulted B/L UE and LE ordered due to swelling to R/O DVT Pt admitted to the ICu and currently receiving emergent HD She is awake, confused, comfortable, NAD CCU Objective - Vital Signs / Intake & Output Vital Signs (Last 4 hours): Vital Signs Temp Pulse Pulse Resp BP Pulse Ox 12/07/17 16:00 99.1 F 89 22 145/71 98 12/07/17 14:52 89 25 H 96 12/07/17 14:30 90 21 148/68 95 12/07/17 13:26 99 Intake and Output (Last 8hrs): Intake & Output 12/07/17 12/07/17 12/07/17 06:59 14:59 22:59 Weight 150 lb - Physical Exam Physical Exam Limitations: Positive for: Altered Mental Status Head: Positive for: Atraumatic, Normocephalic Pupils: Positive for: PERRL Extroacular Muscles: Positive for: EOMI Conjunctiva: Positive for: Normal Ears: Positive for: Normal Mouth: Positive for: Moist Mucous Membranes Pharnyx: Positive for: Normal Nose (Internal): Positive for: Normal Inspection Neck: Positive for: Normal Range of Motion, Trachea Midline. Negative for: Meningeal Signs, MIDLINE TENDERNESS, Paraspinal Tenderness, JVD, Lymphadenopathy , Bruit, Other Respiratory/Chest: Positive for: Decreased Breath Sounds, Rales, Rhonchi. Negative for: Clear to Auscultation, Respiratory Distress, Accessory Muscle Use Abdomen: Positive for: Normal Bowel Sounds. Negative for: Tenderness, Distention Back: Negative for: CVA Tenderness Neurological: Positive for: Motor Func Grossly Intact, Normal Sensory Function Psychiatric: Positive for: Alert. Negative for: Oriented x 3 - Medications Active Medications: Active Medications Generic Name Dose Route Start Last Admin Trade Name Freq PRN Reason Stop Dose Admin Heparin Sodium (Porcine) 5,000 units 12/07/17 17:00 12/07/17 16:30 Heparin SC 5,000 units Q8 MOSHE Administration Protocol Pantoprazole Sodium 40 mg 12/07/17 16:45 Protonix Ec Tab PO DAILY MOSHE - Patient Studies Lab Studies: Lab Studies 12/07/17 12/07/17 12/07/17 Range/Units 11:38 11:38 11:38 WBC 11.3 H (4.8-10.8) K/uL RBC 4.43 (3.80-5.20) Mil/uL Hgb 12.1 (12.0-16.0) g/dL Hct 37.5 (34.0-47.0) % MCV 84.6 D (81.0-99.0) fl MCH 27.3 (27.0-31.0) pg MCHC 32.3 L (33.0-37.0) g/dL RDW 17.7 H (11.5-14.5) % Plt Count 217 D (130-400) K/uL MPV 9.3 (7.2-11.7) fl Neut % (Auto) 91.4 H (50.0-75.0) % Lymph % (Auto) 5.8 L (20.0-40.0) % Coryell % (Auto) 2.3 (0.0-10.0) % Eos % (Auto) 0.4 (0.0-4.0) % Baso % (Auto) 0.1 (0.0-2.0) % Neut # (Auto) 10.4 H (1.8-7.0) K/uL Lymph # (Auto) 0.7 L (1.0-4.3) K/uL Coryell # (Auto) 0.3 (0.0-0.8) K/uL Eos # (Auto) 0.0 (0.0-0.7) K/uL Baso # (Auto) 0.0 (0.0-0.2) K/uL Neutrophils % (Manual) 88 H (42-75) % Band Neutrophils % 3 H (0-2) % Lymphocytes % (Manual) 7 L (20-50) % Monocytes % (Manual) 2 (0-10) % Platelet Estimate Normal (NORMAL) Anisocytosis (manual) Slight PT (9.8-13.1) Seconds INR APTT (25.6-37.1) Seconds pCO2 (35-45) mm/Hg pO2 (80-100) mm/Hg HCO3 (21-28) mmol/L ABG pH (7.35-7.45) ABG Total CO2 (22-28) mmol/L ABG O2 Saturation (95-98) % ABG Base Excess (-2.0-3.0) mmol/L Zion Test ABG Potassium (3.6-5.2) mmol/L A-a O2 Difference mm/Hg Sodium 136 (132-148) mmol/L Chloride 96 L (98-107) mmol/L Glucose (65-105) mg/dL Lactate (0.7-2.1) mmol/L Vent Mode FiO2 % Blood Gas Comments Crit Value Called To Crit Value Called By Crit Value Read Back Blood Gas Notified Time Potassium 8.0 H* D (3.6-5.0) MMOL/L Carbon Dioxide 25 (22-30) mmol/L Anion Gap 23 H (10-20) BUN 66 H (7-17) mg/dl Creatinine 9.1 H* D (0.7-1.2) mg/dl Est GFR ( Amer) 5 Est GFR (Non-Af Amer) 4 POC Glucose (mg/dL) (65-110) mg/dL Random Glucose 108 H (65-105) mg/dL Calcium 9.0 (8.4-10.2) mg/dL Phosphorus 6.7 H (2.5-4.5) mg/dl Magnesium 2.4 H (1.6-2.3) MG/DL Total Bilirubin 1.0 (0.2-1.3) mg/dl AST 40 H (14-36) U/L ALT 27 (9-52) U/L Alkaline Phosphatase 155 H (38-126) U/L Troponin I 0.0600 (0.00-0.120) ng/mL NT-Pro-B Natriuret Pep 94277 H (0-900) pg/ml Total Protein 8.4 H (6.3-8.2) G/DL Albumin 4.2 (3.5-5.0) g/dL Globulin 4.2 H (2.2-3.9) gm/dL Albumin/Globulin Ratio 1.0 (1.0-2.1) Arterial Blood Potassium (3.6-5.2) mmol/L Phenytoin 4.1 L (10-20) ug/ML 12/07/17 12/07/17 12/07/17 Range/Units 11:24 11:24 11:00 WBC (4.8-10.8) K/uL RBC (3.80-5.20) Mil/uL Hgb (12.0-16.0) g/dL Hct (34.0-47.0) % MCV (81.0-99.0) fl MCH (27.0-31.0) pg MCHC (33.0-37.0) g/dL RDW (11.5-14.5) % Plt Count (130-400) K/uL MPV (7.2-11.7) fl Neut % (Auto) (50.0-75.0) % Lymph % (Auto) (20.0-40.0) % Coryell % (Auto) (0.0-10.0) % Eos % (Auto) (0.0-4.0) % Baso % (Auto) (0.0-2.0) % Neut # (Auto) (1.8-7.0) K/uL Lymph # (Auto) (1.0-4.3) K/uL Coryell # (Auto) (0.0-0.8) K/uL Eos # (Auto) (0.0-0.7) K/uL Baso # (Auto) (0.0-0.2) K/uL Neutrophils % (Manual) (42-75) % Band Neutrophils % (0-2) % Lymphocytes % (Manual) (20-50) % Monocytes % (Manual) (0-10) % Platelet Estimate (NORMAL) Anisocytosis (manual) PT 10.6 (9.8-13.1) Seconds INR 1.0 APTT 29.6 (25.6-37.1) Seconds pCO2 38 (35-45) mm/Hg pO2 108 H (80-100) mm/Hg HCO3 27.3 (21-28) mmol/L ABG pH 7.46 H (7.35-7.45) ABG Total CO2 28.2 H (22-28) mmol/L ABG O2 Saturation 98.6 H (95-98) % ABG Base Excess 3.1 H (-2.0-3.0) mmol/L Zion Test Yes ABG Potassium 7.2 H* (3.6-5.2) mmol/L A-a O2 Difference 101.0 mm/Hg Sodium 131.0 L (132-148) mmol/L Chloride 99.0 (98-107) mmol/L Glucose 109 H (65-105) mg/dL Lactate 0.8 (0.7-2.1) mmol/L Vent Mode Nc FiO2 36.0 % Blood Gas Comments Nc 4lpm Crit Value Called To Rosa waggoner Crit Value Called By Breanne Crit Value Read Back Y Blood Gas Notified Time 1136 Potassium (3.6-5.0) MMOL/L Carbon Dioxide (22-30) mmol/L Anion Gap (10-20) BUN (7-17) mg/dl Creatinine (0.7-1.2) mg/dl Est GFR ( Amer) Est GFR (Non-Af Amer) POC Glucose (mg/dL) 112 H (65-110) mg/dL Random Glucose (65-105) mg/dL Calcium (8.4-10.2) mg/dL Phosphorus (2.5-4.5) mg/dl Magnesium (1.6-2.3) MG/DL Total Bilirubin (0.2-1.3) mg/dl AST (14-36) U/L ALT (9-52) U/L Alkaline Phosphatase (38-126) U/L Troponin I (0.00-0.120) ng/mL NT-Pro-B Natriuret Pep (0-900) pg/ml Total Protein (6.3-8.2) G/DL Albumin (3.5-5.0) g/dL Globulin (2.2-3.9) gm/dL Albumin/Globulin Ratio (1.0-2.1) Arterial Blood Potassium 7.2 H* (3.6-5.2) mmol/L Phenytoin (10-20) ug/ML Laboratory Results - last 24 hr 12/07/17 12/07/17 12/07/17 11:00 11:24 11:24 WBC RBC Hgb Hct MCV MCH MCHC RDW Plt Count MPV Neut % (Auto) Lymph % (Auto) Coryell % (Auto) Eos % (Auto) Baso % (Auto) Neut # (Auto) Lymph # (Auto) Coryell # (Auto) Eos # (Auto) Baso # (Auto) Neutrophils % (Manual) Band Neutrophils % Lymphocytes % (Manual) Monocytes % (Manual) Platelet Estimate Anisocytosis (manual) PT 10.6 INR 1.0 APTT 29.6 pCO2 38 pO2 108 H HCO3 27.3 ABG pH 7.46 H ABG Total CO2 28.2 H ABG O2 Saturation 98.6 H ABG Base Excess 3.1 H Zion Test Yes ABG Potassium 7.2 H* A-a O2 Difference 101.0 Sodium 131.0 L Chloride 99.0 Glucose 109 H Lactate 0.8 Vent Mode Nc FiO2 36.0 Blood Gas Comments Nc 4lpm Crit Value Called To Rosa waggoner Crit Value Called By Breanne Crit Value Read Back Y Blood Gas Notified Time 1136 Potassium Carbon Dioxide Anion Gap BUN Creatinine Est GFR ( Amer) Est GFR (Non-Af Amer) POC Glucose (mg/dL) 112 H Random Glucose Calcium Phosphorus Magnesium Total Bilirubin AST ALT Alkaline Phosphatase Troponin I NT-Pro-B Natriuret Pep Total Protein Albumin Globulin Albumin/Globulin Ratio Arterial Blood Potassium 7.2 H* Phenytoin 12/07/17 12/07/17 12/07/17 11:38 11:38 11:38 WBC 11.3 H RBC 4.43 Hgb 12.1 Hct 37.5 MCV 84.6 D MCH 27.3 MCHC 32.3 L RDW 17.7 H Plt Count 217 D MPV 9.3 Neut % (Auto) 91.4 H Lymph % (Auto) 5.8 L Coryell % (Auto) 2.3 Eos % (Auto) 0.4 Baso % (Auto) 0.1 Neut # (Auto) 10.4 H Lymph # (Auto) 0.7 L Coryell # (Auto) 0.3 Eos # (Auto) 0.0 Baso # (Auto) 0.0 Neutrophils % (Manual) 88 H Band Neutrophils % 3 H Lymphocytes % (Manual) 7 L Monocytes % (Manual) 2 Platelet Estimate Normal Anisocytosis (manual) Slight PT INR APTT pCO2 pO2 HCO3 ABG pH ABG Total CO2 ABG O2 Saturation ABG Base Excess Zion Test ABG Potassium A-a O2 Difference Sodium 136 Chloride 96 L Glucose Lactate Vent Mode FiO2 Blood Gas Comments Crit Value Called To Crit Value Called By Crit Value Read Back Blood Gas Notified Time Potassium 8.0 H* D Carbon Dioxide 25 Anion Gap 23 H BUN 66 H Creatinine 9.1 H* D Est GFR ( Amer) 5 Est GFR (Non-Af Amer) 4 POC Glucose (mg/dL) Random Glucose 108 H Calcium 9.0 Phosphorus 6.7 H Magnesium 2.4 H Total Bilirubin 1.0 AST 40 H ALT 27 Alkaline Phosphatase 155 H Troponin I 0.0600 NT-Pro-B Natriuret Pep 67556 H Total Protein 8.4 H Albumin 4.2 Globulin 4.2 H Albumin/Globulin Ratio 1.0 Arterial Blood Potassium Phenytoin 4.1 L EKG/Cardiology Studies: Cardiology / EKG Studies 12/07/17 11:17 ELECTROCARDIOGRAM Stat Comment: Mode Of Transportation: Reason For Exam: Sepsis Patient 12/07/17 13:38 ELECTROCARDIOGRAM Stat Comment: Mode Of Transportation: Reason For Exam: needed Fingerstick Blood Sugar Results: 112 Review of Systems - Review of Systems Systems not reviewed;Unavailable: Altered Mental Status All systems: reviewed and no additional remarkable complaints except - Constitutional Constitutional: Fever. absent: Chills, Sweats, Weakness - Cardiovascular Cardiovascular: absent: Chest Pain, Chest Pain at Rest, Chest Pain with Activity , Claudication, Diaphoresis - Respiratory Respiratory: absent: Cough, Dyspnea, Hemoptysis, Dyspnea on Exertion, Wheezing - Gastrointestinal Gastrointestinal: absent: Abdominal Pain Critical Care Progress Note - Nutrition Nutrition: Nutrition Category Date Time Status Heart Healthy Diet [DIET] Diets 12/07/17 Dinner Active Assessment/Plan (1) Respiratory distress Current Visit: Yes Status: Acute Priority: High Comment: Sec to acute pulmonary edema Emergent HD to obtimize fluid status Aggressive pulmonary toilet BD nebs q 6h prn (2) Acute pulmonary edema Current Visit: Yes Status: Acute Priority: High Comment: As per above (3) Sepsis Current Visit: Yes Status: Acute Priority: High Comment: Patient had fever in the ER, no clear source at this time Antibiotics Vanco and Zosyn was given CX-Ray showed Cardiomegaly and pulmonary vascular congestion ID consulted Will send blood, urine C/S and cultures (4) Hyperkalemia Current Visit: Yes Status: Acute Priority: High Comment: Corrrect hyperkalemia with D50, Insulin, calcium gluconate Repeat Labs, EKG, lactic acid, Calcium, Mag, phosphate Post HD (5) ESRD needing dialysis Current Visit: No Status: Acute Priority: High
[2017-12-07] MEDS ORDERED: Albuterol-Ipratrop 3 mg / 0.5 (3 ml) UD INH PRN (17:45)
[2017-12-07 21:38] LABS: HEPATITIS B SURFACE AG Negative (NEGATIVE)
[2017-12-07 21:43] LABS: HEPATITIS B CORE AB NEGATIVE (NEGATIVE)
[2017-12-07 22:09] LABS: BASO % 0.2 % (0.0-2.0); HEMOGLOBIN 11.3 g/dL (12.0-16.0); LYMPH # 0.9 K/uL (1.0-4.3); LYMPH % 4.2 % (20.0-40.0); MEAN CELL VOLUME 84.9 fl (81.0-99.0); MEAN CORPUSCULAR HEMOGLOBIN 26.9 pg (27.0-31.0); MEAN CORPUSCULAR HGB CONC 31.7 g/dL (33.0-37.0); MEAN PLATELET VOLUME 9.1 fl (7.2-11.7); MONO # 1.2 K/uL (0.0-0.8); MONO % 5.4 % (0.0-10.0); NEUT # 19.7 K/uL (1.8-7.0); NEUT % 90.2 % (50.0-75.0); PLATELET COUNT 196 K/uL (130-400); RED CELL DISTRIBUTION WIDTH 17.5 % (11.5-14.5); WHITE BLOOD COUNT 21.8 K/uL (4.8-10.8)
[2017-12-07 22:31] LABS: CALCIUM 9.3 mg/dL (8.4-10.2)
[2017-12-07] MEDS: Pantoprazole 40 mg EC Tab PO SCH (22:48)
[2017-12-07 22:51] LABS: ANISOCYTOSIS SLIGHT; BANDS 6 % (0-2); LYMPHOCYTE 11 % (20-50); MONOCYTE 5 % (0-10); NEUTROPHIL 78 % (42-75); PLATELET ESTIMATE NORMAL (NORMAL); TOTAL CELLS COUNTED 100
[2017-12-07 22:52] LABS: HYPOCHROMIC SLIGHT; MICROCYTOSIS SLIGHT; OVALOCYTES SLIGHT; POIKILOCYTOSIS SLIGHT
[2017-12-08 05:11] LABS: BASO % 0.3 % (0.0-2.0); HEMOGLOBIN 10.2 g/dL (12.0-16.0); LYMPH # 1.2 K/uL (1.0-4.3); LYMPH % 6.5 % (20.0-40.0); MEAN CELL VOLUME 84.6 fl (81.0-99.0); MEAN CORPUSCULAR HEMOGLOBIN 26.9 pg (27.0-31.0); MEAN CORPUSCULAR HGB CONC 31.8 g/dL (33.0-37.0); MEAN PLATELET VOLUME 9.4 fl (7.2-11.7); MONO % 5.7 % (0.0-10.0); NEUT % 87.5 % (50.0-75.0); RBC 3.81 Mil/uL (3.80-5.20); RED CELL DISTRIBUTION WIDTH 17.5 % (11.5-14.5); WHITE BLOOD COUNT 18.3 K/uL (4.8-10.8)
[2017-12-08 06:16] LABS: ALBUMIN 3.4 g/dL (3.5-5.0); CALCIUM 8.7 mg/dL (8.4-10.2)
--- NOTE | 2017-12-08 07:46 | CARD ---
APPROVED REPORT Date of service: 12/07/2017 EKG Measurement Heart [id number] <Conclusion> Sinus rhythm with 1st degree AV block Possible Left atrial enlargement Borderline ECG
--- NOTE | 2017-12-08 08:30 | HP ---
HISTORY OF PRESENT ILLNESS: The patient is seen in the emergency room before being admitted to Intensive Care Unit. This is a 72 years old female with past medical history of hypertension, end-stage renal disease on hemodialysis, type 2 diabetes mellitus, seizure disorder, was brought to emergency room by EMS for shortness of breath. The patient was scheduled for hemodialysis today, but when the transport came to pick the patient for dialysis, she was noticed to be in distress, complaining of shortness of breath and the patient was brought to emergency room. The patient was evaluated in the emergency room and she was found to have elevated potassium with peak T-wave in electrocardiogram. The patient was given calcium gluconate, insulin and D50. The patient also was noticed to have low-grade fever in the emergency room. Antibiotics, both vancomycin and Zosyn was given. No source of infection could be identified on patient's evaluation in the emergency room. Other review of system is negative. ALLERGIES: NO KNOWN ALLERGY. MEDICATIONS: As per MAR, reviewed and ordered. SOCIAL HISTORY: No history of smoking, EtOH or substance abuse. FAMILY HISTORY: Not contributory. PHYSICAL EXAMINATION: GENERAL: The patient is in bed, not in any cardiopulmonary distress at the time of this examination. VITAL SIGNS: Blood pressure 148/68, temperature 100.1, respiratory rate 21 and pulse 90. HEENT: Pupils equal, reactive to light. Normal-appearing mucosa of the conjunctivae, oropharynx, and nasal membrane mucosa. NECK: Supple. No JVD. No carotid bruit. No lymph nodes. No thyromegaly. CHEST AND LUNGS: Bilateral symmetrical expansion. Good air exchange. No rales, no rhonchi. CARDIOVASCULAR SYSTEM: PMI not localized. S1, S2. murmur. ABDOMEN: Normoactive bowel sounds. No tenderness. No organomegaly. No masses. EXTREMITIES: No cyanosis, no clubbing, no edema. Left shunt is functioning, LENS GAUGER: Alert, awake, oriented x1. No neurological deficit could be appreciated. ASSESSMENT: 1. End-stage renal disease, missed hemodialysis, presented with hyperkalemia and pulmonary congestion. 2. Rule out fever with no apparent source of infection. 3. Seizure disorder. 4. Hypertension. PLAN: Stat hemodialysis was ordered, and the patient to be admitted to ICU. Discussed with prospecting driller helper. We will also order venous Doppler of both upper and lower extremities. Nephrology consult. ID consult. [facility] MD Matt
[2017-12-08] MEDS: Pantoprazole 40 mg EC Tab PO SCH (08:37)
--- NOTE | 2017-12-08 09:19 | CP.PCM.CON ---
History of Present Illness - History of Present Illness History of Present Illness: 's patient who is 72 years of age female known to me with end stage renal disease on maintenance hemodialysis Wednesday she presented to the emergency room complaining of shortness of breath. She was picked up by the ambulance and she was diverticular to come to the emergency room because of shortness of breath and near potassium in the emergency room was quite elevated. Patient was given medication for hyperkalemia and urgent hemodialysis was performed and fluid removal approximately 3900 mL of fluid PMH 72 Years old Female with PMHx of HTN, Diabetes, Gastritis, Chronic Kidney Disease, Seizures and End Stage Renal Disease (Hemodialysis M, W, F) social history not contributory Review of Systems - Constitutional Constitutional: Anorexia. absent: Chills - EENT Eyes: absent: Exophthalmos Nose/Mouth/Throat: absent: Epistaxis, Nasal Congestion - Cardiovascular Cardiovascular: As Per HPI, Dyspnea on Exertion, Leg Edema. absent: Chest Pain , Leg Ulcers - Respiratory Respiratory: Dyspnea. absent: Hemoptysis - Gastrointestinal Gastrointestinal: Abdominal Pain. absent: Coffee Ground Emesis - Genitourinary Genitourinary: Nocturia - Musculoskeletal Musculoskeletal: As Per HPI - Integumentary Integumentary: absent: Acne - Endocrine Endocrine: Fatigue - Hematologic/Lymphatic Hematologic: absent: Easy Bleeding Past Patient History - Infectious Disease Hx of Infectious Diseases: None - Past Medical History & Family History Past Medical History?: Yes - Past Social History Smoking Status: Never Smoked - CARDIAC Hx Cardiac Disorders: Yes Hx Angina: No Hx Atrial Fibrillation: No Hx Cardia Arrhythmia: No Hx Circulatory Problems: No Hx Congestive Heart Failure: Yes Hx Heart Attack: No Hx Heart Murmur: No Hx Heart Transplant: No Hx Hypercholesterolemia: No Hx Hypertension: Yes Hx Hypotension: No Hx Internal Defibrillator: No Hx Mitral Valve Prolapse: No Hx Pacemaker: No Hx Peripheral Edema: No Hx Peripheral Vascular Disease: No - PULMONARY Hx Respiratory Disorders: Yes Hx Asthma: No Hx Bronchitis: No Hx Chronic Obstructive Pulmonary Disease (COPD): No Hx Emphysema: No Hx Lung Cancer: No Hx Pneumonia: No Hx Pulmonary Edema: No Hx Pulmonary Embolism: No Hx Respiratory Aspiration: No Hx Respiratory Tract Infection: No Hx Sleep Apnea: No Hx Tuberculosis: No Other/Comment: SOB - NEUROLOGICAL Hx Neurological Disorder: Yes Hx Alzheimer's Disease: No HX Cerebrovascular Accident: No Hx Dementia: No Hx Dizziness: No Hx Meningitis: No Hx Migraine: No Hx Multiple Sclerosis: No Hx Paralysis: No Hx Parkinson's Disease: No Hx Seizures: Yes Hx Syncope: No Hx Transient Ischemic Attacks (TIA): No Hx Vertigo: No Other/Comment: CONFUSED - HEENT Hx HEENT Problems: Yes Hx Blind: No Hx Cataracts: No Hx Deafness: No Hx Difficulty Chewing: No Hx Epistaxis: No Hx Glaucoma: No Hx Macular Degeneration: No Hx Sinusitis: No Other/Comment: GLASSES - RENAL Hx Chronic Kidney Disease: Yes Hx Dialysis: Yes (TUES, THURS, SAT) Type of Dialysis Access: LEFT AV SHUNT Hx Kidney Stones: No Hx Neurogenic Bladder: No Hx Pyelonephritis: No Hx Renal (Kidney) Cancer: No Hx Renal Failure: Yes - ENDOCRINE/METABOLIC Hx Endocrine Disorders: Yes Hx Adrenal Cancer: No Hx Diabetes Insipidus: No Hx Diabetes Mellitus Type 1: No Hx Diabetes Mellitus Type 2: Yes Hx Hyperthyroidism: No Hx Hypothyroidism: No Hx Systemic Lupus Erythematosus: No - HEMATOLOGICAL/ONCOLOGICAL Hx Blood Disorders: No Hx AIDS: No Hx Anemia: No Hx Blood Transfusions: No (UNKNOWN, CONFUSED) Hx Blood Transfusion Reaction: No Hx Bruising: No Hx Cancer: No Hx Chemotherapy: No Hx Cirrhosis: No Hx Gum Bleeding: No Hx Hemophilia: No Hx Hepatitis A: No Hx Hepatitis B: No Hx Hepatitis C: No Hx Human Immunodeficiency Virus (HIV): No Hx Leukemia: No Hx Metastesis: No Hx Shingles: No Hx Sickle Cell Disease: No Hx Unexplained Bleeding: No Hx von Willebrand's Disease: No - INTEGUMENTARY Hx Dermatological Problems: No Hx Basil Cell: No Hx Martell: No Hx Cellulitis: No Hx Eczema: No Hx Melanoma: No Hx Psoriasis: No Hx Squamous Cell: No - MUSCULOSKELETAL/RHEUMATOLOGICAL Hx Musculoskeletal Disorders: Yes Hx Arthritis: No Hx Back Pain: No Hx Degenerative Joint Disease: No Hx Falls: No (unknwon) Hx Fractures: No Hx Gout: No Hx Herniated Disk: No Hx Myasthenia Gravis: No Hx Osteoarthritis: No Hx Osteomyelitis: No Hx Osteoporosis: No Hx Rhabdomyolysis: No Hx Rheumatoid Arthritis: No Hx Spinal Stenosis: No Hx Unsteady Gait: Yes - GASTROINTESTINAL Hx Gastrointestinal Disorders: Yes Hx Bowel Surgery: No Hx Clostridium Difficile: No Hx Colitis: No Hx Colostomy: No Hx Constipation: No Hx Crohn's Disease: No Hx Diarrhea: No Hx Diverticulitis: No Hx Esophageal Varices: No Hx Fatty Liver Disease: No Hx Gall Bladder Disease: No Hx Gastritis: Yes Hx Gastroesophageal Reflux: No Hx Hemorrhoids: No Hx Ileostomy: No Hx Irritable Bowel: No Hx Liver Failure: No Hx Nausea: No Hx Pancreatitis: No HX Swallowing Problems: No Hx Ulcer: No - GENITOURINARY/GYNECOLOGICAL Hx Genitourinary Disorders: Yes Hx Bladder Cancer: No Hx Bladder Stone: No Hx Cervical Cancer: No Hx Hematuria: No Hx Incontinence: No Hx Ovarian Cancer: Yes Hx Postmenopausal Bleeding: No Hx Reproductive Disorders: No Hx Sexually Transmitted Disorders: No Hx Uterine Cancer: No Hx Urinary Tract Infection: No - PSYCHIATRIC Hx Psychophysiologic Disorder: Yes Hx Anxiety: No Hx Bipolar Disorder: No Hx Depression: No Hx Emotional Abuse: No Hx Hallucinations: No Hx Panic Symptoms: No Hx Paranoia: No Hx Post Traumatic Stress Disorder: No Hx Psychosis: No Hx Physical Abuse: No Hx Schizophrenia: No Hx Sexual Abuse: No Hx Substance Use: No Other/Comment: CONFUSED - SURGICAL HISTORY Hx Surgeries: Yes Hx Abdominal Aortic Aneurysm Repair: No Other/Comment: left AVF, 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) - ANESTHESIA Hx Anesthesia: Yes Hx Anesthesia Reactions: No Hx Malignant Hyperthermia: No Has any member of the family had a problem w/ anesthesia?: No (UNKNOWN) Meds Allergies/Adverse Reactions: Allergies Allergy/AdvReac Type Severity Reaction Status Date / Time No Known Allergies Allergy Verified 10/24/17 21:01 - Medications Medications: Current Medications Acetaminophen (Tylenol 325mg Tab) 650 mg PO Q6 PRN PRN Reason: Pain, Mild (1-3) Last Admin: 12/07/17 22:48 Dose: 650 mg Albuterol/Ipratropium (Duoneb 3 Mg/0.5 Mg (3 Ml) Ud) 3 ml INH RQ6 PRN PRN Reason: Shortness of Breath Heparin Sodium (Porcine) (Heparin) 5,000 units SC Q8 MOSHE PRN Reason: Protocol Last Admin: 12/08/17 08:37 Dose: 5,000 units Piperacillin Sod/Tazobactam (Sod 2.25 gm/ Sodium Chloride) 100 mls @ 100 mls/ hr IVPB Q8 MOSHE PRN Reason: Protocol Ketorolac Tromethamine (Toradol) 30 mg IVP Q6 PRN PRN Reason: Pain, moderate (4-7) Last Admin: 12/08/17 08:36 Dose: 30 mg Ondansetron HCl (Zofran Inj) 4 mg IVP Q6 PRN PRN Reason: Nausea/Vomiting Last Admin: 12/07/17 20:45 Dose: 4 mg Pantoprazole Sodium (Protonix Ec Tab) 40 mg PO DAILY [facility] Last Admin: 12/08/17 08:37 Dose: 40 mg Phenytoin Sodium (Dilantin) 100 mg PO TID [facility] Last Admin: 12/08/17 08:36 Dose: 100 mg Physical Exam - Constitutional Appears: No Acute Distress - Eye Exam Eye Exam: Conjunctival injection - ENT Exam ENT Exam: Mucous Membranes Moist - Neck Exam Neck exam: Negative for: Lymphadenopathy - Respiratory Exam Respiratory Exam: Rhonchi, NORMAL BREATHING PATTERN. absent: Chest Wall Tenderness - Cardiovascular Exam Cardiovascular Exam: REGULAR RHYTHM. absent: Gallop, JVD, Rubs - GI/Abdominal Exam GI & Abdominal Exam: Distended, Guarding, Normal Bowel Sounds - Extremities Exam Extremities exam: Negative for: calf tenderness - Back Exam Back exam: absent: CVA tenderness (L), CVA tenderness (R) - Neurological Exam Neurological exam: Alert - Psychiatric Exam Psychiatric exam: Normal Affect Results - Vital Signs Recent Vital Signs: Last Vital Signs Temp 99.1 F 12/08/17 00:05 Pulse 81 12/08/17 03:05 Resp 22 12/08/17 03:05 BP 125/49 L 12/08/17 03:05 Pulse Ox 96 12/08/17 03:05 - Labs Result Diagrams: 12/08/17 04:30 12/08/17 04:30 Labs: Laboratory Results - last 24 hr 12/07/17 12/07/17 12/07/17 11:00 11:24 11:24 WBC RBC Hgb Hct MCV MCH MCHC RDW Plt Count MPV Neut % (Auto) Lymph % (Auto) Burt % (Auto) Eos % (Auto) Baso % (Auto) Neut # (Auto) Lymph # (Auto) Burt # (Auto) Eos # (Auto) Baso # (Auto) Neutrophils % (Manual) Band Neutrophils % Lymphocytes % (Manual) Monocytes % (Manual) Platelet Estimate Hypochromasia (manual) Poikilocytosis (manual Anisocytosis (manual) Microcytosis (manual) Ovalocytes PT 10.6 INR 1.0 APTT 29.6 pCO2 38 pO2 108 H HCO3 27.3 ABG pH 7.46 H ABG Total CO2 28.2 H ABG O2 Saturation 98.6 H ABG Base Excess 3.1 H Zion Test Yes ABG Potassium 7.2 H* A-a O2 Difference 101.0 Sodium 131.0 L Chloride 99.0 Glucose 109 H Lactate 0.8 Vent Mode Nc FiO2 36.0 Blood Gas Comments Nc 4lpm Crit Value Called To Rosa waggoner Crit Value Called By Breanne Crit Value Read Back Y Blood Gas Notified Time 1136 Potassium Carbon Dioxide Anion Gap BUN Creatinine Est GFR ( Amer) Est GFR (Non-Af Amer) POC Glucose (mg/dL) 112 H Random Glucose Lactic Acid Calcium Phosphorus Magnesium Total Bilirubin AST ALT Alkaline Phosphatase Troponin I NT-Pro-B Natriuret Pep Total Protein Albumin Globulin Albumin/Globulin Ratio Arterial Blood Potassium 7.2 H* Phenytoin Hep Bs Antigen Hep Bs Antibody Hep B Core IgM Ab 12/07/17 12/07/17 12/07/17 11:38 11:38 11:38 WBC 11.3 H RBC 4.43 Hgb 12.1 Hct 37.5 MCV 84.6 D MCH 27.3 MCHC 32.3 L RDW 17.7 H Plt Count 217 D MPV 9.3 Neut % (Auto) 91.4 H Lymph % (Auto) 5.8 L Burt % (Auto) 2.3 Eos % (Auto) 0.4 Baso % (Auto) 0.1 Neut # (Auto) 10.4 H Lymph # (Auto) 0.7 L Burt # (Auto) 0.3 Eos # (Auto) 0.0 Baso # (Auto) 0.0 Neutrophils % (Manual) 88 H Band Neutrophils % 3 H Lymphocytes % (Manual) 7 L Monocytes % (Manual) 2 Platelet Estimate Normal Hypochromasia (manual) Poikilocytosis (manual Anisocytosis (manual) Slight Microcytosis (manual) Ovalocytes PT INR APTT pCO2 pO2 HCO3 ABG pH ABG Total CO2 ABG O2 Saturation ABG Base Excess Zion Test ABG Potassium A-a O2 Difference Sodium 136 Chloride 96 L Glucose Lactate Vent Mode FiO2 Blood Gas Comments Crit Value Called To Crit Value Called By Crit Value Read Back Blood Gas Notified Time Potassium 8.0 H* D Carbon Dioxide 25 Anion Gap 23 H BUN 66 H Creatinine 9.1 H* D Est GFR ( Amer) 5 Est GFR (Non-Af Amer) 4 POC Glucose (mg/dL) Random Glucose 108 H Lactic Acid Calcium 9.0 Phosphorus 6.7 H Magnesium 2.4 H Total Bilirubin 1.0 AST 40 H ALT 27 Alkaline Phosphatase 155 H Troponin I 0.0600 NT-Pro-B Natriuret Pep 21299 H Total Protein 8.4 H Albumin 4.2 Globulin 4.2 H Albumin/Globulin Ratio 1.0 Arterial Blood Potassium Phenytoin 4.1 L Hep Bs Antigen Hep Bs Antibody Hep B Core IgM Ab 12/07/17 12/07/17 12/07/17 18:00 18:00 22:04 WBC 21.8 H D RBC 4.20 Hgb 11.3 L Hct 35.7 MCV 84.9 MCH 26.9 L MCHC 31.7 L RDW 17.5 H Plt Count 196 MPV 9.1 Neut % (Auto) 90.2 H Lymph % (Auto) 4.2 L Burt % (Auto) 5.4 Eos % (Auto) 0.0 Baso % (Auto) 0.2 Neut # (Auto) 19.7 H Lymph # (Auto) 0.9 L Burt # (Auto) 1.2 H Eos # (Auto) 0.0 Baso # (Auto) 0.0 Neutrophils % (Manual) 78 H Band Neutrophils % 6 H Lymphocytes % (Manual) 11 L Monocytes % (Manual) 5 Platelet Estimate Normal Hypochromasia (manual) Slight Poikilocytosis (manual Slight Anisocytosis (manual) Slight Microcytosis (manual) Slight Ovalocytes Slight PT INR APTT pCO2 pO2 HCO3 ABG pH ABG Total CO2 ABG O2 Saturation ABG Base Excess [place] Test ABG Potassium A-a O2 Difference Sodium Chloride Glucose Lactate Vent Mode FiO2 Blood Gas Comments Crit Value Called To Crit Value Called By Crit Value Read Back Blood Gas Notified Time Potassium Carbon Dioxide Anion Gap BUN Creatinine Est GFR ( Amer) Est GFR (Non-Af Amer) POC Glucose (mg/dL) Random Glucose Lactic Acid Calcium Phosphorus Magnesium Total Bilirubin AST ALT Alkaline Phosphatase Troponin I NT-Pro-B Natriuret Pep Total Protein Albumin Globulin Albumin/Globulin Ratio Arterial Blood Potassium Phenytoin Hep Bs Antigen Negative Hep Bs Antibody Negative Hep B Core IgM Ab Negative 12/07/17 12/07/17 12/08/17 22:04 22:04 04:30 WBC 18.3 H RBC 3.81 Hgb 10.2 L Hct 32.2 L MCV 84.6 MCH 26.9 L MCHC 31.8 L RDW 17.5 H Plt Count 172 MPV 9.4 Neut % (Auto) 87.5 H Lymph % (Auto) 6.5 L Burt % (Auto) 5.7 Eos % (Auto) 0.0 Baso % (Auto) 0.3 Neut # (Auto) 16.0 H Lymph # (Auto) 1.2 Burt # (Auto) 1.0 H Eos # (Auto) 0.0 Baso # (Auto) 0.0 Neutrophils % (Manual) Band Neutrophils % Lymphocytes % (Manual) Monocytes % (Manual) Platelet Estimate Hypochromasia (manual) Poikilocytosis (manual Anisocytosis (manual) Microcytosis (manual) Ovalocytes PT INR APTT pCO2 pO2 HCO3 ABG pH ABG Total CO2 ABG O2 Saturation ABG Base Excess [place] Test ABG Potassium A-a O2 Difference Sodium 138 Chloride 92 L Glucose Lactate Vent Mode FiO2 Blood Gas Comments Crit Value Called To Crit Value Called By Crit Value Read Back Blood Gas Notified Time Potassium 4.3 Carbon Dioxide 31 H Anion Gap 19 BUN 25 H Creatinine 4.7 H Est GFR ( Amer) 11 Est GFR (Non-Af Amer) 9 POC Glucose (mg/dL) Random Glucose 127 H Lactic Acid 2.4 H Calcium 9.3 Phosphorus 5.2 H Magnesium 2.0 Total Bilirubin AST ALT Alkaline Phosphatase Troponin I NT-Pro-B Natriuret Pep Total Protein Albumin Globulin Albumin/Globulin Ratio Arterial Blood Potassium Phenytoin Hep Bs Antigen Hep Bs Antibody Hep B Core IgM Ab 12/08/17 04:30 WBC RBC Hgb Hct MCV MCH MCHC RDW Plt Count MPV Neut % (Auto) Lymph % (Auto) Burt % (Auto) Eos % (Auto) Baso % (Auto) Neut # (Auto) Lymph # (Auto) Burt # (Auto) Eos # (Auto) Baso # (Auto) Neutrophils % (Manual) Band Neutrophils % Lymphocytes % (Manual) Monocytes % (Manual) Platelet Estimate Hypochromasia (manual) Poikilocytosis (manual Anisocytosis (manual) Microcytosis (manual) Ovalocytes PT INR APTT pCO2 pO2 HCO3 ABG pH ABG Total CO2 ABG O2 Saturation ABG Base Excess [place] Test ABG Potassium A-a O2 Difference Sodium 136 Chloride 93 L Glucose Lactate Vent Mode FiO2 Blood Gas Comments Crit Value Called To Crit Value Called By Crit Value Read Back Blood Gas Notified Time Potassium 4.5 Carbon Dioxide 32 H Anion Gap 16 BUN 31 H Creatinine 5.3 H Est GFR ( Amer) 10 Est GFR (Non-Af Amer) 8 POC Glucose (mg/dL) Random Glucose 146 H Lactic Acid Calcium 8.7 Phosphorus Magnesium Total Bilirubin 0.7 AST 33 ALT 27 Alkaline Phosphatase 128 H Troponin I NT-Pro-B Natriuret Pep Total Protein 7.1 Albumin 3.4 L Globulin 3.6 Albumin/Globulin Ratio 1.0 Arterial Blood Potassium Phenytoin Hep Bs Antigen Hep Bs Antibody Hep B Core IgM Ab Assessment & Plan (1) Acute pulmonary edema Status: Acute Priority: High (2) Hyperkalemia Status: Acute Priority: High (3) Sepsis Status: Acute (4) Chronic kidney disease with end stage renal failure on dialysis Assessment and Plan: end stage renal disease Admitted with severe hyperkalemia and volume overloaded the require urgent dialysis last night #2 patient noted to have abdominal pain and somewhat distention of the abdomen and patient to go for a stat ultrasound of the abdomen and possibly CT scan of the abdomen Empiric antibiotics patient was given vancomycin and Zosyn was added waiting for the ID Leukocytosis History of hyperphosphatemia and secondary hyperparathyroidism Status: Acute
[2017-12-08 10:06] LABS: URINE BACTERIA RARE (<OCC); URINE BILIRUBIN NEGATIVE (NEGATIVE); URINE CLARITY SLIGHTY-CLOUDY (Clear); URINE COLOR YELLOW (YELLOW); URINE GLUCOSE (UA) NEG (Normal); URINE LEUKOCYTE ESTERASE NEG Leu/uL (Negative); URINE PROTEIN 100 mg/dL (NEGATIVE); URINE UROBILINOGEN 0.2-1.0 mg/dL (0.2-1.0)
[2017-12-08 10:08] LABS: URINE BLOOD TRACE (NEGATIVE)
--- NOTE | 2017-12-08 13:23 | CP.PCM.PN ---
Subjective - Date & Time of Evaluation Date of Evaluation: 12/08/17 Time of Evaluation: 13:22 - Subjective Subjective: ID note- Pt. seen and examined today in ICU. Pt. much more awake and alert today and in good spirits. She states she feels much better and much less sob. denies any fever. She still c/o abdominal pain. Objective - Vital Signs/Intake and Output Vital Signs (last 24 hours): Temp Pulse Resp BP Pulse Ox 97.9 F 90 19 120/65 93 L 12/08/17 12:23 12/08/17 12:23 12/08/17 12:23 12/08/17 12:23 12/08/17 12:23 - Medications Medications: Current Medications Acetaminophen (Tylenol 325mg Tab) 650 mg PO Q6 PRN PRN Reason: Pain, Mild (1-3) Last Admin: 12/07/17 22:48 Dose: 650 mg Albuterol/Ipratropium (Duoneb 3 Mg/0.5 Mg (3 Ml) Ud) 3 ml INH RQ6 PRN PRN Reason: Shortness of Breath Epoetin Sammy (Procrit) 4,000 unit IV TTS [facility] Heparin Sodium (Porcine) (Heparin) 5,000 units SC Q8 [facility] PRN Reason: Protocol Last Admin: 12/08/17 08:37 Dose: 5,000 units Piperacillin Sod/Tazobactam (Sod 2.25 gm/ Sodium Chloride) 100 mls @ 100 mls/ hr IVPB Q8 [facility] PRN Reason: Protocol Last Admin: 12/08/17 13:12 Dose: 100 mls/hr Ketorolac Tromethamine (Toradol) 30 mg IVP Q6 PRN PRN Reason: Pain, moderate (4-7) Last Admin: 12/08/17 08:36 Dose: 30 mg Ondansetron HCl (Zofran Inj) 4 mg IVP Q6 PRN PRN Reason: Nausea/Vomiting Last Admin: 12/07/17 20:45 Dose: 4 mg Pantoprazole Sodium (Protonix Ec Tab) 40 mg PO DAILY [facility] Last Admin: 12/08/17 08:37 Dose: 40 mg Phenytoin Sodium (Dilantin) 100 mg PO TID [facility] Last Admin: 12/08/17 13:12 Dose: 100 mg - Labs Labs: - Additional Findings Additional findings: - Constitutional Appears: No Acute Distress - Head Exam Head Exam: ATRAUMATIC - Eye Exam Eye Exam: EOMI, PERRL - ENT Exam ENT Exam: Normal Oropharynx - Neck Exam Neck exam: Positive for: Full Rom - Respiratory Exam Additional comments: bibasilar crackles no wheezing slight tachypnea - Cardiovascular Exam Cardiovascular Exam: RRR, +S1, +S2 - GI/Abdominal Exam GI & Abdominal Exam: Normal Bowel Sounds, Soft Additional comments: + mild tenderness throughtout abdomen no guarding, no rebound no CVA tenderness - Extremities Exam Extremities exam: Positive for: normal inspection - Neurological Exam Additional comments: AAO x 3 Laboratory Results - last 72 hr 12/07/17 12/07/17 12/07/17 11:00 11:24 11:24 WBC RBC Hgb Hct MCV MCH MCHC RDW Plt Count MPV Neut % (Auto) Lymph % (Auto) [place] % (Auto) Eos % (Auto) Baso % (Auto) Neut # (Auto) Lymph # (Auto) [place] # (Auto) Eos # (Auto) Baso # (Auto) Neutrophils % (Manual) Band Neutrophils % Lymphocytes % (Manual) Monocytes % (Manual) Platelet Estimate Hypochromasia (manual) Poikilocytosis (manual Anisocytosis (manual) Microcytosis (manual) Ovalocytes PT 10.6 INR 1.0 APTT 29.6 pCO2 38 pO2 108 H HCO3 27.3 ABG pH 7.46 H ABG Total CO2 28.2 H ABG O2 Saturation 98.6 H ABG Base Excess 3.1 H Zion Test Yes ABG Potassium 7.2 H* A-a O2 Difference 101.0 Sodium 131.0 L Chloride 99.0 Glucose 109 H Lactate 0.8 Vent Mode Nc FiO2 36.0 Blood Gas Comments Nc 4lpm Crit Value Called To Rosa waggoner Crit Value Called By Breanne Crit Value Read Back Y Blood Gas Notified Time 1136 Potassium Carbon Dioxide Anion Gap BUN Creatinine Est GFR ( Amer) Est GFR (Non-Af Amer) POC Glucose (mg/dL) 112 H Random Glucose Lactic Acid Calcium Phosphorus Magnesium Total Bilirubin AST ALT Alkaline Phosphatase Troponin I NT-Pro-B Natriuret Pep Total Protein Albumin Globulin Albumin/Globulin Ratio Arterial Blood Potassium 7.2 H* Urine Color Urine Clarity Urine pH Ur Specific [place] Urine Protein Urine Glucose (UA) Urine Ketones Urine Blood Urine Nitrate Urine Bilirubin Urine Urobilinogen Ur Leukocyte Esterase Urine RBC (Auto) Urine Microscopic WBC Urine Bacteria Phenytoin Hep Bs Antigen Hep Bs Antibody Hep B Core IgM Ab 12/07/17 12/07/17 12/07/17 11:38 11:38 11:38 WBC 11.3 H RBC 4.43 Hgb 12.1 Hct 37.5 MCV 84.6 D MCH 27.3 MCHC 32.3 L RDW 17.7 H Plt Count 217 D MPV 9.3 Neut % (Auto) 91.4 H Lymph % (Auto) 5.8 L [place] % (Auto) 2.3 Eos % (Auto) 0.4 Baso % (Auto) 0.1 Neut # (Auto) 10.4 H Lymph # (Auto) 0.7 L [place] # (Auto) 0.3 Eos # (Auto) 0.0 Baso # (Auto) 0.0 Neutrophils % (Manual) 88 H Band Neutrophils % 3 H Lymphocytes % (Manual) 7 L Monocytes % (Manual) 2 Platelet Estimate Normal Hypochromasia (manual) Poikilocytosis (manual Anisocytosis (manual) Slight Microcytosis (manual) Ovalocytes PT INR APTT pCO2 pO2 HCO3 ABG pH ABG Total CO2 ABG O2 Saturation ABG Base Excess [place] Test ABG Potassium A-a O2 Difference Sodium 136 Chloride 96 L Glucose Lactate Vent Mode FiO2 Blood Gas Comments Crit Value Called To Crit Value Called By Crit Value Read Back Blood Gas Notified Time Potassium 8.0 H* D Carbon Dioxide 25 Anion Gap 23 H BUN 66 H Creatinine 9.1 H* D Est GFR ( Amer) 5 Est GFR (Non-Af Amer) 4 POC Glucose (mg/dL) Random Glucose 108 H Lactic Acid Calcium 9.0 Phosphorus 6.7 H Magnesium 2.4 H Total Bilirubin 1.0 AST 40 H ALT 27 Alkaline Phosphatase 155 H Troponin I 0.0600 NT-Pro-B Natriuret Pep 29502 H Total Protein 8.4 H Albumin 4.2 Globulin 4.2 H Albumin/Globulin Ratio 1.0 Arterial Blood Potassium Urine Color Urine Clarity Urine pH Ur Specific [place] Urine Protein Urine Glucose (UA) Urine Ketones Urine Blood Urine Nitrate Urine Bilirubin Urine Urobilinogen Ur Leukocyte Esterase Urine RBC (Auto) Urine Microscopic WBC Urine Bacteria Phenytoin 4.1 L Hep Bs Antigen Hep Bs Antibody Hep B Core IgM Ab 12/07/17 12/07/17 12/07/17 18:00 18:00 22:04 WBC 21.8 H D RBC 4.20 Hgb 11.3 L Hct 35.7 MCV 84.9 MCH 26.9 L MCHC 31.7 L RDW 17.5 H Plt Count 196 MPV 9.1 Neut % (Auto) 90.2 H Lymph % (Auto) 4.2 L Alger % (Auto) 5.4 Eos % (Auto) 0.0 Baso % (Auto) 0.2 Neut # (Auto) 19.7 H Lymph # (Auto) 0.9 L [place] # (Auto) 1.2 H Eos # (Auto) 0.0 Baso # (Auto) 0.0 Neutrophils % (Manual) 78 H Band Neutrophils % 6 H Lymphocytes % (Manual) 11 L Monocytes % (Manual) 5 Platelet Estimate Normal Hypochromasia (manual) Slight Poikilocytosis (manual Slight Anisocytosis (manual) Slight Microcytosis (manual) Slight Ovalocytes Slight PT INR APTT pCO2 pO2 HCO3 ABG pH ABG Total CO2 ABG O2 Saturation ABG Base Excess [place] Test ABG Potassium A-a O2 Difference Sodium Chloride Glucose Lactate Vent Mode FiO2 Blood Gas Comments Crit Value Called To Crit Value Called By Crit Value Read Back Blood Gas Notified Time Potassium Carbon Dioxide Anion Gap BUN Creatinine Est GFR ( Amer) Est GFR (Non-Af Amer) POC Glucose (mg/dL) Random Glucose Lactic Acid Calcium Phosphorus Magnesium Total Bilirubin AST ALT Alkaline Phosphatase Troponin I NT-Pro-B Natriuret Pep Total Protein Albumin Globulin Albumin/Globulin Ratio Arterial Blood Potassium Urine Color Urine Clarity Urine pH Ur Specific [place] Urine Protein Urine Glucose (UA) Urine Ketones Urine Blood Urine Nitrate Urine Bilirubin Urine Urobilinogen Ur Leukocyte Esterase Urine RBC (Auto) Urine Microscopic WBC Urine Bacteria Phenytoin Hep Bs Antigen Negative Hep Bs Antibody Negative Hep B Core IgM Ab Negative 12/07/17 12/07/17 12/08/17 22:04 22:04 04:30 WBC 18.3 H RBC 3.81 Hgb 10.2 L Hct 32.2 L MCV 84.6 MCH 26.9 L MCHC 31.8 L RDW 17.5 H Plt Count 172 MPV 9.4 Neut % (Auto) 87.5 H Lymph % (Auto) 6.5 L Alger % (Auto) 5.7 Eos % (Auto) 0.0 Baso % (Auto) 0.3 Neut # (Auto) 16.0 H Lymph # (Auto) 1.2 Alger # (Auto) 1.0 H Eos # (Auto) 0.0 Baso # (Auto) 0.0 Neutrophils % (Manual) Band Neutrophils % Lymphocytes % (Manual) Monocytes % (Manual) Platelet Estimate Hypochromasia (manual) Poikilocytosis (manual Anisocytosis (manual) Microcytosis (manual) Ovalocytes PT INR APTT pCO2 pO2 HCO3 ABG pH ABG Total CO2 ABG O2 Saturation ABG Base Excess [place] Test ABG Potassium A-a O2 Difference Sodium 138 Chloride 92 L Glucose Lactate Vent Mode FiO2 Blood Gas Comments Crit Value Called To Crit Value Called By Crit Value Read Back Blood Gas Notified Time Potassium 4.3 Carbon Dioxide 31 H Anion Gap 19 BUN 25 H Creatinine 4.7 H Est GFR ( Amer) 11 Est GFR (Non-Af Amer) 9 POC Glucose (mg/dL) Random Glucose 127 H Lactic Acid 2.4 H Calcium 9.3 Phosphorus 5.2 H Magnesium 2.0 Total Bilirubin AST ALT Alkaline Phosphatase Troponin I NT-Pro-B Natriuret Pep Total Protein Albumin Globulin Albumin/Globulin Ratio Arterial Blood Potassium Urine Color Urine Clarity Urine pH Ur Specific [place] Urine Protein Urine Glucose (UA) Urine Ketones Urine Blood Urine Nitrate Urine Bilirubin Urine Urobilinogen Ur Leukocyte Esterase Urine RBC (Auto) Urine Microscopic WBC Urine Bacteria Phenytoin Hep Bs Antigen Hep Bs Antibody Hep B Core IgM Ab 12/08/17 12/08/17 12/08/17 04:30 09:39 10:00 WBC RBC Hgb Hct MCV MCH MCHC RDW Plt Count MPV Neut % (Auto) Lymph % (Auto) [place] % (Auto) Eos % (Auto) Baso % (Auto) Neut # (Auto) Lymph # (Auto) [place] # (Auto) Eos # (Auto) Baso # (Auto) Neutrophils % (Manual) Band Neutrophils % Lymphocytes % (Manual) Monocytes % (Manual) Platelet Estimate Hypochromasia (manual) Poikilocytosis (manual Anisocytosis (manual) Microcytosis (manual) Ovalocytes PT INR APTT pCO2 pO2 HCO3 ABG pH ABG Total CO2 ABG O2 Saturation ABG Base Excess [place] Test ABG Potassium A-a O2 Difference Sodium 136 Chloride 93 L Glucose Lactate Vent Mode FiO2 Blood Gas Comments Crit Value Called To Crit Value Called By Crit Value Read Back Blood Gas Notified Time Potassium 4.5 Carbon Dioxide 32 H Anion Gap 16 BUN 31 H Creatinine 5.3 H Est GFR ( Amer) 10 Est GFR (Non-Af Amer) 8 POC Glucose (mg/dL) Random Glucose 146 H Lactic Acid Calcium 8.7 Phosphorus 7.0 H Magnesium Total Bilirubin 0.7 AST 33 ALT 27 Alkaline Phosphatase 128 H Troponin I NT-Pro-B Natriuret Pep Total Protein 7.1 Albumin 3.4 L Globulin 3.6 Albumin/Globulin Ratio 1.0 Arterial Blood Potassium Urine Color Yellow Urine Clarity Slighty-cloudy Urine pH 8.0 Ur Specific [place] 1.006 Urine Protein 100 Urine Glucose (UA) Neg Urine Ketones Negative Urine Blood Trace Urine Nitrate Negative Urine Bilirubin Negative Urine Urobilinogen 0.2-1.0 Ur Leukocyte Esterase Neg Urine RBC (Auto) 4 H Urine Microscopic WBC 1 Urine Bacteria Rare Phenytoin Hep Bs Antigen Hep Bs Antibody Hep B Core IgM Ab Microbiology 12/07/17 11:38 Blood Blood Culture - Preliminary NO GROWTH AFTER 24 HOURS Assessment and Plan (1) Chronic kidney disease with end stage renal failure on dialysis Status: Acute (2) [id number] renal failure Status: Acute (3) Hyperkalemia Status: Acute (4) Fever Status: Acute - Assessment and Plan (Free Text) Assessment: A/P- 72 year old female with PMH of DM II, ESRD on HD, admitted with sob and resp distress and fever. clinically better today. afebrile today leukocytosis , however, has increased today blood cx- negative x 1 UA- negative high Pro-BNP pneumonia vs CHF exacerbation leukocytosis fever ESRD on HD Plan- check one more blood cx. check sputum cx. check mycoplasma serology and Legionella AG. continue with zosyn and Vanco empirically as started by primary team to cover for healthcare associated pneumonia. day #2 keep vanco trough between 10-15. add zithromax to cover for atypicals pending further results. HD as per renal team All above d/w patient at length and she verbalizes full understanding of all above. ICU time 40 minutes.
--- NOTE | 2017-12-08 16:15 | US ---
Date of service: 12/08/2017 PROCEDURE: Upper Extremity Venous Duplex Exam HISTORY: R/O acute DVT PRIORS: None. TECHNIQUE: Bilateral upper extremity, internal jugular, subclavian, axillary, brachial, ulnar, radial, basilic and upper cephalic veins were evaluated. Flow was assessed with color Doppler, compressibility, assessment of phasic flow and augmentation response. Report prepared by dental technologist. FINDINGS: RIGHT: 1. Internal Jugular: 1.1. Compressibility - Fully compressible: Thrombus - None : Flow - Phasic: Augmentation -Normal: Reflux - None. 2. Subclavian: 2.1. Compressibility - Fully compressible: Thrombus - None : Flow - Phasic: Augmentation -Normal: Reflux - None. 3. Axillary: 3.1. Compressibility - Fully compressible: Thrombus - None : Flow - Phasic: Augmentation -Normal: Reflux - None. 4. Brachial: 4.1. Compressibility - Fully compressible: Thrombus - None: Flow - Phasic: Augmentation -Normal: Reflux - None. 5. Ulnar: 5.1. Compressibility - Fully compressible: Thrombus - None: Flow - Phasic: Augmentation -Normal: Reflux - None. 6. Radial: 6.1. Compressibility - Fully compressible: Thrombus - None: Flow - Phasic: Augmentation - Normal: Reflux - None. 7. Cephalic: 7.1. Compressibility - Fully compressible: Thrombus - None: Flow - Phasic: Augmentation -Normal: Reflux - None. 8. Basilic: 8.1. Compressibility - Fully compressible: Thrombus - None: Flow - Phasic: Augmentation -Normal: Reflux - None. LEFT: 1. Internal Jugular: 1.1. Compressibility - Fully compressible: Thrombus - None : Flow - Phasic: Augmentation -Normal: Reflux - None. 2. Subclavian: 2.1. Compressibility - Fully compressible: Thrombus - None : Flow - Phasic: Augmentation -Normal: Reflux - None. 3. Axillary: 3.1. Compressibility - Fully compressible: Thrombus - None : Flow - Phasic: Augmentation -Normal: Reflux - None. 4. Brachial: 4.1. Compressibility - Fully compressible: Thrombus - None: Flow - Phasic: Augmentation -Normal: Reflux - None. OTHER FINDINGS: Right: None. Left: There is a AV dialysis fistula in the left antecubital fossa which appears patent. IMPRESSION: Right: No evidence of vein thrombosis of the right upper extremity with good venous flow. Left: No evidence of vein thrombosis of the left upper extremity with excellent venous flow. Patent left arm AV dialysis fistula.
--- NOTE | 2017-12-08 16:25 | CP.CCUPN ---
CCU Subjective - Physician Review Subjective (Free Text): Eyes open with verbal stimuli, but appears confused and disoriented, underwent HD yesterday with 2.9 L. removed, on nasal cannula now in no resp distress. Repeat K levels have improved, EKG shows normalization of Ts. No recurrent fevers since max of 102.6F on admission. Other vitals and I/O's reviewed. Bp 126/74, HR 90, RR 22, SPO2 98% on nasal cannula. ROS: No other pertinent negs or positives on 10+ system review- unobtainable due to confusional status. PMSFH: All other Nursing and physician documentation reviewed to date; no new pertinent info noted relevant to current medical problems. EXAM- HEENT: no icterus, no gaze preference, Pupils 3 mm and reactive NECK: No JVD visible, supple, carotids equal upstroke bilat/no bruits CHEST: decreased BS bases, no wheezes audible HEART: regular, distant S1S2, no rubs or murmurs audible. ABD: softly distended, BS hypoactive, neg rebound or guarding, but grimaces with palpable tenderness over epigastric and periumbilical area. EXT: + edema, no cyanosis; no calf tenderness or palpable cords, distal pulses intact and symmetrical. NEURO: + tone all extremities, no gross focal deficits. SKIN: no rashes, warm and dry. LABS: WBC= 18.3 HGB= 10.2 PLTs= 172K Alk Phos =128 Trop#1 negative Lactate= 2.4 yesterday Na= 136 K= 4.5 CL= 93 HCO3=32 BUN/Cr= 31/5.3 BS= 146 CXR: yesterday- bi-hilar congestive interstitial changes, no gross consolidation (my interp) EKG: yesterday done 3 H later from admission- (my interp) sinus 87/min with 1 st AVB, poor R progression anteriorly, T waves normalized compared to admission study. IMPRESSION / MAJOR PROBLEMS NOW: 1. AMS 2 metabolic encephalopathy; r/o Sepsis Encephalopathy; occult Seizure activity, CVA 2. Fluid Overload state 2 missed HD with h/o ESRD 3. Severe Sepsis without Shock state, r/o Intra-abdominal; Lung pathology 4. h/o Seizure Disorder on Dilantin PLAN: 1. Improved cardiopulm status, check for recent ECHO for LV fx. 2. US Abd ordered as per Nephrology. If no significant pathology seen, will order CTAP, and include CT chest to look for occult pneumonitis changes not visible on plain CXR, especially hilar regions. 3. Check repeat LFTs, Alk Phos4 4. Blood Cx sterile to date. 5. Empiric Abx as per ID.
[2017-12-08] MEDS: Azithromycin 500 MG in Sodium Chloride 0.9% 250 ML IVPB SCH (17:06)
--- NOTE | 2017-12-08 17:09 | US ---
Date of service: 12/08/2017 PROCEDURE: Bilateral lower extremity venous duplex Doppler. HISTORY: R/O acute DVT COMPARISON: None available. TECHNIQUE: Bilateral common femoral, superficial femoral, popliteal and posterior tibial veins were evaluated. Flow was assessed with color Doppler, compressibility, assessment of phasic flow and augmentation response. FINDINGS: COMMON FEMORAL VEIN: Right CFV: Unremarkable. Left CFV: Unremarkable. SUPERFICIAL FEMORAL VEIN: Right SFV: Unremarkable. Left SFV: Unremarkable. POPLITEAL VEIN: Right Popliteal: Unremarkable. Left Popliteal: Unremarkable. POSTERIOR TIBIAL VEIN: Right PTV: Unremarkable. Left PTV: Unremarkable. OTHER FINDINGS: None. IMPRESSION: No evidence of deep venous thrombosis.
--- NOTE | 2017-12-08 17:11 | US ---
Date of service: 12/08/2017 HISTORY: pain COMPARISON: None. TECHNIQUE: Sonographic evaluation of the abdomen. FINDINGS: LIVER: Measures 15.1 cm. Normal echogenicity of the liver parenchyma. There is a 3.0 x 2.0 x 2.5 cm simple cyst in the left hepatic lobe and 2.4 x 2.5 x 2.4 cm simple cyst in the right hepatic lobe.. No intrahepatic bile duct dilatation. GALLBLADDER: Unremarkable. No gallstones. COMMON BILE DUCT: Measures 4.0 mm. No stones. No dilatation. PANCREAS: Unremarkable as visualized. No mass. No ductal dilatation. RIGHT KIDNEY: Measures 16.5cm. There is diffuse increased echogenicity. No calculus, mass, or hydronephrosis. There are multiple variable size cysts. LEFT KIDNEY: Measures 15.6cm. There is diffuse increased echogenicity. No calculus, mass, or hydronephrosis. There are multiple variable size cysts. SPLEEN: Normal in size and contour. No mass. AORTA: No aneurysmal dilatation. IVC: Unremarkable. OTHER FINDINGS: None. IMPRESSION: 1. Two simple cysts in the liver, the larger in the left hepatic lobe measures 3.0 cm. 2. Enlarged multicystic kidneys.
[2017-12-09 05:58] LABS: BASO % 0.3 % (0.0-2.0); EOS # 0.1 K/uL (0.0-0.7); EOS % 0.8 % (0.0-4.0); HEMOGLOBIN 9.8 g/dL (12.0-16.0); LYMPH # 0.6 K/uL (1.0-4.3); LYMPH % 4.7 % (20.0-40.0); MEAN CELL VOLUME 84.6 fl (81.0-99.0); MEAN CORPUSCULAR HEMOGLOBIN 27.4 pg (27.0-31.0); MEAN CORPUSCULAR HGB CONC 32.3 g/dL (33.0-37.0); MEAN PLATELET VOLUME 9.3 fl (7.2-11.7); MONO # 0.8 K/uL (0.0-0.8); MONO % 6.2 % (0.0-10.0); NEUT # 11.5 K/uL (1.8-7.0); RBC 3.58 Mil/uL (3.80-5.20); RED CELL DISTRIBUTION WIDTH 16.9 % (11.5-14.5); WHITE BLOOD COUNT 13.1 K/uL (4.8-10.8)
[2017-12-09 06:17] LABS: ALB/GLOB RATIO 0.9 (1.0-2.1); ALBUMIN 3.2 g/dL (3.5-5.0); CALCIUM 8.1 mg/dL (8.4-10.2)
[2017-12-09] MEDS ORDERED: Glucagon Recombinant 1 mg Inj IM PRN (09:19)
[2017-12-09] MEDS ORDERED: Dextrose 50% SYRINGE Inj (50 ml) IV PRN (09:19)
[2017-12-09] MEDS: Pantoprazole 40 mg EC Tab PO SCH (09:25)
[2017-12-09] MEDS: Azithromycin 500 MG in Sodium Chloride 0.9% 250 ML IVPB SCH (09:26)
[2017-12-09] MEDS: Epoetin Alfa 4000 UNIT/ML Inj IV SCH (09:30)
--- NOTE | 2017-12-09 09:56 | CP.PCM.PN ---
Subjective - Date & Time of Evaluation Date of Evaluation: 12/09/17 Time of Evaluation: 09:56 - Subjective Subjective: patient is awake and conscious not in acute distress. No nausea no vomiting. Is still complaining of some abdominal pain for the most part on the right side Objective - Vital Signs/Intake and Output Vital Signs (last 24 hours): Temp Pulse Resp BP Pulse Ox 98.4 F 67 15 146/69 100 12/09/17 08:00 12/09/17 08:00 12/09/17 08:00 12/09/17 08:00 12/09/17 08:00 Intake and Output: 12/09/17 12/09/17 06:59 18:59 Intake Total 200 0 Balance 200 0 - Medications Medications: Current Medications Acetaminophen (Tylenol 325mg Tab) 650 mg PO Q6 PRN PRN Reason: Pain, Mild (1-3) Last Admin: 12/07/17 22:48 Dose: 650 mg Albuterol/Ipratropium (Duoneb 3 Mg/0.5 Mg (3 Ml) Ud) 3 ml INH RQ6 PRN PRN Reason: Shortness of Breath Dextrose (Dextrose 50% Inj) 0 ml IV STAT PRN; Protocol PRN Reason: Hypoglycemia Protocol Dextrose (Glutose 15) 0 gm PO ONCE PRN; Protocol PRN Reason: Hypoglycemia Protocol Epoetin Sammy (Procrit) 4,000 unit IV TTS [facility] Last Admin: 12/09/17 09:30 Dose: 4,000 unit Glucagon (Glucagen Diagnostic Kit) 0 mg IM STAT PRN; Protocol PRN Reason: Hypoglycemia Protocol Heparin Sodium (Porcine) (Heparin) 5,000 units SC Q8 [facility] PRN Reason: Protocol Last Admin: 12/09/17 09:25 Dose: 5,000 units Azithromycin 500 mg/ Sodium (Chloride) 250 mls @ 250 mls/hr IVPB DAILY [facility] PRN Reason: Protocol Last Admin: 12/09/17 09:26 Dose: 250 mls/hr Vancomycin HCl 1 gm/ Sodium (Chloride) 250 mls @ 125 mls/hr IVPB TTS [facility] PRN Reason: Protocol Last Admin: 12/09/17 09:26 Dose: 125 mls/hr Piperacillin Sod/Tazobactam (Sod 2.25 gm/ Sodium Chloride) 100 mls @ 100 mls/ hr IVPB Q8@0500,1300,2100 [facility] PRN Reason: Protocol Last Admin: 12/09/17 04:30 Dose: 100 mls/hr Insulin Human Regular (Humulin R) 0 units SC [facility]S [facility] PRN Reason: Protocol Ketorolac Tromethamine (Toradol) 30 mg IVP Q6 PRN PRN Reason: Pain, moderate (4-7) Last Admin: 12/09/17 03:57 Dose: 30 mg Ondansetron HCl (Zofran Inj) 4 mg IVP Q6 PRN PRN Reason: Nausea/Vomiting Last Admin: 12/07/17 20:45 Dose: 4 mg Pantoprazole Sodium (Protonix Ec Tab) 40 mg PO DAILY [facility] Last Admin: 12/09/17 09:25 Dose: 40 mg Phenytoin Sodium (Dilantin) 100 mg PO TID [facility] Last Admin: 12/09/17 09:24 Dose: 100 mg - Labs Labs: 12/09/17 05:15 12/09/17 05:15 PT 10.6 Seconds (9.8-13.1) 12/07/17 11:24 INR 1.0 12/07/17 11:24 APTT 29.6 Seconds (25.6-37.1) 12/07/17 11:24 - Constitutional Appears: No Acute Distress - Eye Exam Eye Exam: Conjunctival injection - ENT Exam ENT Exam: Mucous Membranes Moist - Neck Exam Neck Exam: absent: Lymphadenopathy - Respiratory Exam Respiratory Exam: NORMAL BREATHING PATTERN. absent: Chest Wall Tenderness - GI/Abdominal Exam GI & Abdominal Exam: Guarding, Normal Bowel Sounds - Extremities Exam Extremities Exam: absent: Calf Tenderness - Back Exam Back Exam: absent: CVA tenderness (L), CVA tenderness (R) - Neurological Exam Neurological Exam: Alert - Psychiatric Exam Psychiatric exam: Normal Affect - Skin Skin Exam: absent: Cyanosis Assessment and Plan (1) Acute pulmonary edema Status: Acute (2) Hyperkalemia Status: Acute (3) Sepsis Status: Acute (4) Chronic kidney disease with end stage renal failure on dialysis Assessment & Plan: end stage renal disease on dialysis TTS Patient admitted was volume overloaded and fever and leukocytosis Abdominal pain has not been subsided completely suggestive of diverticulitis? No vomiting reported PMHx of HTN, Diabetes, Gastritis, Chronic Kidney Disease, Seizures and End Stage Renal Disease (Hemodialysis TTS) the plan Leukocytosis improving patient receiving Zosyn and vancomycin and as azithromycin Hemodialysis about to start now with ultrafiltration 3000 mL to be removed Suggest to do CT scan of the abdomen and pelvis Glycemic control with diabetic management Phosphorus binders Status: Acute
[2017-12-09] MEDS ORDERED: Iohexol 240 (50 ml) PO ONE (10:37)
[2017-12-09] MEDS: Insulin Regular 100 units/ml SC SCH ×3 (12:33→21:37)
[2017-12-09] MEDS ORDERED: Iohexol 300 100 ML IJ ONE (14:32)
[2017-12-09] MEDS ORDERED: Sodium Chloride 0.9% 50 ML IV ONE (14:32)
--- NOTE | 2017-12-09 15:47 | CT ---
Date of service: 12/09/2017 PROCEDURE: CT HEAD WITHOUT CONTRAST. HISTORY: Confusion/ Sepsis COMPARISON: 08/05/2017. TECHNIQUE: Axial computed tomography images were obtained through the head/brain without intravenous contrast. Supplemental Coronal and Sagittal projectections created and reviewed. Radiation dose: Total exam DLP = 29.45 mGy-cm. This CT exam was performed using one or more of the following dose reduction techniques: Automated exposure control, adjustment of the mA and/or kV according to patient size, and/or use of iterative reconstruction technique. FINDINGS: HEMORRHAGE: No intracranial hemorrhage. BRAIN: No mass effect or edema. Extra-axial fluid collection, subdural hygroma right frontal parietal region unchanged compared to the prior study. Stable encephalomalacia change adjacent to and more extensive than the left parietal craniotomy. Unrelated atrophy, periventricular small vessel disease and small lacune or infarcts. Stable cerebellar atrophy. No brainstem abnormalities detected. VENTRICLES: No significant interval change compared to the prior examination(s). CALVARIUM: Unremarkable. PARANASAL SINUSES: Unremarkable as visualized. No significant inflammatory changes. MASTOID AIR CELLS: Unremarkable as visualized. No inflammatory changes. OTHER FINDINGS: None. IMPRESSION: No acute intracranial abnormalities. No significant findings to account for the clinical presentation. No significant interval change compared to the prior examination(s).
--- NOTE | 2017-12-09 16:09 | CT ---
Date of service: 12/09/2017 PROCEDURE: CT Chest, Abdomen and Pelvis with intravenous contrast HISTORY: abd pain COMPARISON: December 08, 2017. Abdominal ultrasound. TECHNIQUE: IV dose administered: 95 cc Omnipaque 300. Radiation dose: Total exam DLP = 629.21 mGy-cm. This CT exam was performed using one or more of the following dose reduction techniques: Automated exposure control, adjustment of the mA and/or kV according to patient size, and/or use of iterative reconstruction technique. FINDINGS: CT CHEST WITH CONTRAST: LUNGS: Trace dependent atelectasis both lower lobes. MEDIASTINUM: Unremarkable. Dilated main pulmonary artery 3.7 cm consistent with pulmonary arterial hypertension. Unremarkable/non aneurysmal thoracic aorta.. No aortic dissection. Cardiomegaly. No evidence of acute, significant cardiovascular disease. LYMPH NODES: Unremarkable. PLEURA: Trace bilateral pleural effusions. BONES: Unremarkable. OTHER FINDINGS: Bilateral cystic thyroid nodules of uncertain etiology/significance. CT ABDOMEN AND PELVIS: LIVER: Hepatomegaly, innumerable hepatic cysts the preponderance of which are simple cysts. Several cysts scattered throughout the liver contain areas calcification primarily rim calcifications. GALLBLADDER AND BILE DUCTS: Unremarkable. PANCREAS: Unremarkable. No gross lesion or ductal dilatation. SPLEEN: Unremarkable. ADRENALS: Unremarkable. No mass. KIDNEYS AND URETERS: Polycystic kidney disease. Innumerable cysts identified bilaterally. Several of these contain calcified rims. No solid hepatic masses are visible. VASCULATURE: Unremarkable. No aortic aneurysm. BOWEL: Diverticulosis without an acute inflammatory component or other associated pathologic process.. Constipation without fecal impaction or obstruction. APPENDIX: No abnormalities to suggest acute appendicitis. No right lower quadrant inflammatory processes identified. PERITONEUM: Unremarkable. No free fluid. No free air. LYMPH NODES: Unremarkable. No enlarged lymph nodes. BLADDER: The bladder is decompressed. REPRODUCTIVE: An atrophic uterus is visible. BONES: No acute fracture. OTHER FINDINGS: None. IMPRESSION: No acute findings related to/accounting for the clinical presentation. Additional benign and/or incidental findings described above.
--- NOTE | 2017-12-09 17:20 | CP.CCUPN ---
CCU Subjective - Physician Review Subjective (Free Text): More appropriately responsive today. No recurrent fevers since max of 102.6F on admission. Other vitals and I/O's reviewed. Bp 133/76, HR 70, RR 18, SPO2 98% on nasal cannula. ROS: No other pertinent negs or positives on 10+ system review PMSFH: All other Nursing and physician documentation reviewed to date; no new pertinent info noted relevant to current medical problems. EXAM- HEENT: no icterus, no gaze preference, Pupils 3 mm and reactive NECK: No JVD visible, supple, carotids equal upstroke bilat/no bruits CHEST: decreased BS bases, no wheezes audible HEART: regular, distant S1S2, no rubs or murmurs audible. ABD: softly distended, BS hypoactive, neg rebound or guarding, but grimaces with palpable tenderness over epigastric and periumbilical area. EXT: + edema, no cyanosis; no calf tenderness or palpable cords, distal pulses intact and symmetrical. NEURO: + tone all extremities, no gross focal deficits. SKIN: no rashes, warm and dry. LABS: WBC= 13.1 HGB= 9.8 PLTs= 164K Lactate= 0.6 Na= 136 K= 4.6 CL= 93 HCO3=29 BUN/Cr= 51/7.3 BS= 129 IMPRESSION / MAJOR PROBLEMS NOW: 1. AMS 2 metabolic encephalopathy; r/o Sepsis Encephalopathy; occult Seizure activity, CVA 2. Fluid Overload state 2 missed HD with h/o ESRD 3. Severe Sepsis without Shock state, r/o Intra-abdominal; Lung pathology 4. h/o Seizure Disorder on Dilantin PLAN: 1. Improved cardiopulm status, check for recent ECHO for LV fx. 2. US Abd shows no pathology to account for patients abd pain. For CTAP, Chest today. 3. Blood Cx sterile to date. 4. Empiric Abx as per ID. 5. Stable for stepdown bed as per PMD.
--- NOTE | 2017-12-09 18:43 | PN ---
DATE: 12/09/2017 SUBJECTIVE: The patient is seen today, 12/09/2017. She was eating breakfast during this examination. PHYSICAL EXAMINATION: VITAL SIGNS: Blood pressure 136/68, temperature 98, respiratory rate 18, and pulse 72. HEENT: Pupils equal, reactive to light. Normal-appearing mucosa of the conjunctivae, oropharyngeal and nasal membrane mucosa. NECK: Supple. No JVD. No carotid bruit. No lymph node. No thyromegaly. CHEST AND LUNGS: Bilateral symmetrical expansion. Good air exchange. No rales, no rhonchi. CARDIOVASCULAR SYSTEM: PMI not localized. S1 and S2. No additional sounds. ABDOMEN: Normoactive bowel sounds. No tenderness. No organomegaly. No masses. EXTREMITIES: No cyanosis, no clubbing, no edema. ALTERNATIVE ENERGY ENGINEER: Alert, awake, oriented x2. No neurological deficit could be appreciated. ASSESSMENT: 1. Fever, leukocytosis, possible pneumonia versus intra-abdominal infection. 2. Status post hyperkalemia due to missing hemodialysis. 3. End-stage renal disease, on hemodialysis. PLAN: Continue current IV antibiotics. Discussed the patient's condition with police captain precinct who ordered CAT scan of the abdomen and pelvis to rule out any intra-abdominal infection. The patient is for hemodialysis today also. Henrique Gutierrez MD
[2017-12-10] MEDS: Insulin Regular 100 units/ml SC SCH ×4 (06:34→22:17)
--- NOTE | 2017-12-10 07:04 | PN ---
DATE: 12/08/2017 SUBJECTIVE: The patient was seen on 12/08/2017. She was not in any cardiopulmonary distress, but the patient was complaining of back pain and lower abdominal pain. PHYSICAL EXAMINATION: VITAL SIGNS: Blood pressure was 120/65, temperature 97.9, respiratory rate 19, and pulse 90. HEENT: Pupils equal, reactive to light. Normal-appearing mucosa of the conjunctivae, oropharynx, and nasal membrane mucosa. NECK: Supple. No JVD. No carotid bruit. No lymph node. No thyromegaly. CHEST AND LUNGS: Bilateral symmetrical expansion. Good air exchange. No rales, no rhonchi. CARDIOVASCULAR SYSTEM: PMI not localized. S1 and S2. No additional sounds. ABDOMEN: Normoactive bowel sounds. No tenderness. No organomegaly. No masses. EXTREMITIES: No cyanosis, no clubbing, no edema. SECURITY COMPLIANCE ENGINEER: Alert, awake, oriented x2. No neurological deficit could be appreciated. ASSESSMENT: 1. Hyperkalemia due to missing hemodialysis. 2. End-stage renal disease, on hemodialysis. 3. Hypertension. 4. Type 2 diabetes mellitus. 5. Pneumonia versus congestive heart failure with leukocytosis. 6. Lower abdominal pain, likely to be referred pain from the degenerative spine disease. PLAN: Continue current antibiotics as per ID. Discussed the patient's condition with blower mechanic. The patient is for hemodialysis again tomorrow. Her white blood cell count came down from 21.8 to 18.3. We will monitor. Potassium came down from 8 to 4.5. Henrique Gutierrez MD
[2017-12-10] MEDS: Azithromycin 500 MG in Sodium Chloride 0.9% 250 ML IVPB SCH (09:07)
[2017-12-10] MEDS: Pantoprazole 40 mg EC Tab PO SCH (09:11)
--- NOTE | 2017-12-10 09:14 | CP.PCM.PN ---
Subjective - Date & Time of Evaluation Date of Evaluation: 12/10/17 Time of Evaluation: 09:14 - Subjective Subjective: ID note- pt. seen and examined today in tele unit. Pt. awake and denies any cough or any sob. denies any fever. states feels much better. Objective - Vital Signs/Intake and Output Vital Signs (last 24 hours): Temp Pulse Resp BP Pulse Ox 98.5 F 72 20 157/65 H 100 12/10/17 08:21 12/10/17 08:21 12/10/17 08:21 12/10/17 08:21 12/10/17 08:21 - Medications Medications: Current Medications Acetaminophen (Tylenol 325mg Tab) 650 mg PO Q6 PRN PRN Reason: Pain, Mild (1-3) Last Admin: 12/07/17 22:48 Dose: 650 mg Albuterol/Ipratropium (Duoneb 3 Mg/0.5 Mg (3 Ml) Ud) 3 ml INH RQ6 PRN PRN Reason: Shortness of Breath Dextrose (Dextrose 50% Inj) 0 ml IV STAT PRN; Protocol PRN Reason: Hypoglycemia Protocol Dextrose (Glutose 15) 0 gm PO ONCE PRN; Protocol PRN Reason: Hypoglycemia Protocol Epoetin Sammy (Procrit) 4,000 unit IV TTS MOSHE Last Admin: 12/09/17 09:30 Dose: 4,000 unit Glucagon (Glucagen Diagnostic Kit) 0 mg IM STAT PRN; Protocol PRN Reason: Hypoglycemia Protocol Heparin Sodium (Porcine) (Heparin) 5,000 units SC Q8 MOSHE PRN Reason: Protocol Last Admin: 12/10/17 09:11 Dose: 5,000 units Azithromycin 500 mg/ Sodium (Chloride) 250 mls @ 250 mls/hr IVPB DAILY [facility] PRN Reason: Protocol Last Admin: 12/10/17 09:07 Dose: 250 mls/hr Vancomycin HCl 1 gm/ Sodium (Chloride) 250 mls @ 125 mls/hr IVPB TTS MOSHE PRN Reason: Protocol Last Admin: 12/09/17 09:26 Dose: 125 mls/hr Piperacillin Sod/Tazobactam (Sod 2.25 gm/ Sodium Chloride) 100 mls @ 100 mls/ hr IVPB Q8@0500,1300,2100 MOSHE PRN Reason: Protocol Last Admin: 12/10/17 04:46 Dose: 100 mls/hr Insulin Human Regular (Humulin R) 0 units SC ACHS MOSHE PRN Reason: Protocol Last Admin: 12/10/17 06:34 Dose: Not Given Ketorolac Tromethamine (Toradol) 30 mg IVP Q6 PRN PRN Reason: Pain, moderate (4-7) Last Admin: 12/09/17 20:08 Dose: 30 mg Ondansetron HCl (Zofran Inj) 4 mg IVP Q6 PRN PRN Reason: Nausea/Vomiting Last Admin: 12/07/17 20:45 Dose: 4 mg Pantoprazole Sodium (Protonix Ec Tab) 40 mg PO DAILY [facility] Last Admin: 12/10/17 09:11 Dose: 40 mg Phenytoin Sodium (Dilantin) 100 mg PO TID [facility] Last Admin: 12/10/17 09:11 Dose: 100 mg - Labs Labs: - Additional Findings Additional findings: - Constitutional Appears: No Acute Distress - Head Exam Head Exam: ATRAUMATIC - Eye Exam Eye Exam: EOMI, PERRL - ENT Exam ENT Exam: Normal Oropharynx - Neck Exam Neck exam: Positive for: Full Rom - Respiratory Exam Additional comments: decreased bibasilar crackles no wheezing - Cardiovascular Exam Cardiovascular Exam: RRR, +S1, +S2 - GI/Abdominal Exam GI & Abdominal Exam: Normal Bowel Sounds, Soft Additional comments: NT, ND no guarding, no rebound no CVA tenderness - Extremities Exam Extremities exam: Positive for: normal inspection - Neurological Exam Additional comments: AAO x 3 Laboratory Results - last 72 hr 12/07/17 12/07/17 12/07/17 18:00 18:00 20:54 WBC RBC Hgb Hct MCV MCH MCHC RDW Plt Count MPV Neut % (Auto) Lymph % (Auto) [place] % (Auto) Eos % (Auto) Baso % (Auto) Neut # (Auto) Lymph # (Auto) [place] # (Auto) Eos # (Auto) Baso # (Auto) Neutrophils % (Manual) Band Neutrophils % Lymphocytes % (Manual) Monocytes % (Manual) Platelet Estimate Hypochromasia (manual) Poikilocytosis (manual Anisocytosis (manual) Microcytosis (manual) Ovalocytes Sodium Potassium Chloride Carbon Dioxide Anion Gap BUN Creatinine Est GFR ( Amer) Est GFR (Non-Af Amer) POC Glucose (mg/dL) 124 H Random Glucose Lactic Acid Calcium Phosphorus Magnesium Total Bilirubin AST ALT Alkaline Phosphatase Total Protein Albumin Globulin Albumin/Globulin Ratio Procalcitonin PTH Intact Whole [place] Urine Color Urine Clarity Urine pH Ur Specific [place] Urine Protein Urine Glucose (UA) Urine Ketones Urine Blood Urine Nitrate Urine Bilirubin Urine Urobilinogen Ur Leukocyte Esterase Urine RBC (Auto) Urine Microscopic WBC Urine Bacteria Hep Bs Antigen Negative Hep Bs Antibody Negative Hep B Core IgM Ab Negative 12/07/17 12/07/17 12/07/17 22:04 22:04 22:04 WBC 21.8 H D RBC 4.20 Hgb 11.3 L Hct 35.7 MCV 84.9 MCH 26.9 L MCHC 31.7 L RDW 17.5 H Plt Count 196 MPV 9.1 Neut % (Auto) 90.2 H Lymph % (Auto) 4.2 L [place] % (Auto) 5.4 Eos % (Auto) 0.0 Baso % (Auto) 0.2 Neut # (Auto) 19.7 H Lymph # (Auto) 0.9 L [place] # (Auto) 1.2 H Eos # (Auto) 0.0 Baso # (Auto) 0.0 Neutrophils % (Manual) 78 H Band Neutrophils % 6 H Lymphocytes % (Manual) 11 L Monocytes % (Manual) 5 Platelet Estimate Normal Hypochromasia (manual) Slight Poikilocytosis (manual Slight Anisocytosis (manual) Slight Microcytosis (manual) Slight Ovalocytes Slight Sodium 138 Potassium 4.3 Chloride 92 L Carbon Dioxide 31 H Anion Gap 19 BUN 25 H Creatinine 4.7 H Est GFR ( Amer) 11 Est GFR (Non-Af Amer) 9 POC Glucose (mg/dL) Random Glucose 127 H Lactic Acid 2.4 H Calcium 9.3 Phosphorus 5.2 H Magnesium 2.0 Total Bilirubin AST ALT Alkaline Phosphatase Total Protein Albumin Globulin Albumin/Globulin Ratio Procalcitonin PTH Intact Whole [place] Urine Color Urine Clarity Urine pH Ur Specific [place] Urine Protein Urine Glucose (UA) Urine Ketones Urine Blood Urine Nitrate Urine Bilirubin Urine Urobilinogen Ur Leukocyte Esterase Urine RBC (Auto) Urine Microscopic WBC Urine Bacteria Hep Bs Antigen Hep Bs Antibody Hep B Core IgM Ab 12/08/17 12/08/17 12/08/17 04:30 04:30 06:13 WBC 18.3 H RBC 3.81 Hgb 10.2 L Hct 32.2 L MCV 84.6 MCH 26.9 L MCHC 31.8 L RDW 17.5 H Plt Count 172 MPV 9.4 Neut % (Auto) 87.5 H Lymph % (Auto) 6.5 L [place] % (Auto) 5.7 Eos % (Auto) 0.0 Baso % (Auto) 0.3 Neut # (Auto) 16.0 H Lymph # (Auto) 1.2 [place] # (Auto) 1.0 H Eos # (Auto) 0.0 Baso # (Auto) 0.0 Neutrophils % (Manual) Band Neutrophils % Lymphocytes % (Manual) Monocytes % (Manual) Platelet Estimate Hypochromasia (manual) Poikilocytosis (manual Anisocytosis (manual) Microcytosis (manual) Ovalocytes Sodium 136 Potassium 4.5 Chloride 93 L Carbon Dioxide 32 H Anion Gap 16 BUN 31 H Creatinine 5.3 H Est GFR ( Amer) 10 Est GFR (Non-Af Amer) 8 POC Glucose (mg/dL) 142 H Random Glucose 146 H Lactic Acid Calcium 8.7 Phosphorus Magnesium Total Bilirubin 0.7 AST 33 ALT 27 Alkaline Phosphatase 128 H Total Protein 7.1 Albumin 3.4 L Globulin 3.6 Albumin/Globulin Ratio 1.0 Procalcitonin PTH Intact Whole [place] Urine Color Urine Clarity Urine pH Ur Specific [place] Urine Protein Urine Glucose (UA) Urine Ketones Urine Blood Urine Nitrate Urine Bilirubin Urine Urobilinogen Ur Leukocyte Esterase Urine RBC (Auto) Urine Microscopic WBC Urine Bacteria Hep Bs Antigen Hep Bs Antibody Hep B Core IgM Ab 12/08/17 12/08/17 12/08/17 09:39 10:00 10:00 WBC RBC Hgb Hct MCV MCH MCHC RDW Plt Count MPV Neut % (Auto) Lymph % (Auto) [place] % (Auto) Eos % (Auto) Baso % (Auto) Neut # (Auto) Lymph # (Auto) [place] # (Auto) Eos # (Auto) Baso # (Auto) Neutrophils % (Manual) Band Neutrophils % Lymphocytes % (Manual) Monocytes % (Manual) Platelet Estimate Hypochromasia (manual) Poikilocytosis (manual Anisocytosis (manual) Microcytosis (manual) Ovalocytes Sodium Potassium Chloride Carbon Dioxide Anion Gap BUN Creatinine Est GFR ( Amer) Est GFR (Non-Af Amer) POC Glucose (mg/dL) Random Glucose Lactic Acid Calcium Phosphorus 7.0 H Magnesium Total Bilirubin AST ALT Alkaline Phosphatase Total Protein Albumin Globulin Albumin/Globulin Ratio Procalcitonin PTH Intact Whole [place] 240 H Urine Color Yellow Urine Clarity Slighty-cloudy Urine pH 8.0 Ur Specific [place] 1.006 Urine Protein 100 Urine Glucose (UA) Neg Urine Ketones Negative Urine Blood Trace Urine Nitrate Negative Urine Bilirubin Negative Urine Urobilinogen 0.2-1.0 Ur Leukocyte Esterase Neg Urine RBC (Auto) 4 H Urine Microscopic WBC 1 Urine Bacteria Rare Hep Bs Antigen Hep Bs Antibody Hep B Core IgM Ab 12/08/17 12/08/17 12/09/17 11:15 21:32 05:15 WBC 13.1 H RBC 3.58 L Hgb 9.8 L Hct 30.3 L MCV 84.6 MCH 27.4 MCHC 32.3 L RDW 16.9 H Plt Count 164 MPV 9.3 Neut % (Auto) 88.0 H Lymph % (Auto) 4.7 L [place] % (Auto) 6.2 Eos % (Auto) 0.8 Baso % (Auto) 0.3 Neut # (Auto) 11.5 H Lymph # (Auto) 0.6 L [place] # (Auto) 0.8 Eos # (Auto) 0.1 Baso # (Auto) 0.0 Neutrophils % (Manual) Band Neutrophils % Lymphocytes % (Manual) Monocytes % (Manual) Platelet Estimate Hypochromasia (manual) Poikilocytosis (manual Anisocytosis (manual) Microcytosis (manual) Ovalocytes Sodium Potassium Chloride Carbon Dioxide Anion Gap BUN Creatinine Est GFR ( Amer) Est GFR (Non-Af Amer) POC Glucose (mg/dL) 161 H 168 H Random Glucose Lactic Acid Calcium Phosphorus Magnesium Total Bilirubin AST ALT Alkaline Phosphatase Total Protein Albumin Globulin Albumin/Globulin Ratio Procalcitonin PTH Intact Whole [place] Urine Color Urine Clarity Urine pH Ur Specific [place] Urine Protein Urine Glucose (UA) Urine Ketones Urine Blood Urine Nitrate Urine Bilirubin Urine Urobilinogen Ur Leukocyte Esterase Urine RBC (Auto) Urine Microscopic WBC Urine Bacteria Hep Bs Antigen Hep Bs Antibody Hep B Core IgM Ab 12/09/17 12/09/17 12/09/17 05:15 05:15 05:15 WBC RBC Hgb Hct MCV MCH MCHC RDW Plt Count MPV Neut % (Auto) Lymph % (Auto) [place] % (Auto) Eos % (Auto) Baso % (Auto) Neut # (Auto) Lymph # (Auto) [place] # (Auto) Eos # (Auto) Baso # (Auto) Neutrophils % (Manual) Band Neutrophils % Lymphocytes % (Manual) Monocytes % (Manual) Platelet Estimate Hypochromasia (manual) Poikilocytosis (manual Anisocytosis (manual) Microcytosis (manual) Ovalocytes Sodium 136 Potassium 4.6 Chloride 93 L Carbon Dioxide 29 Anion Gap 19 BUN 51 H Creatinine 7.3 H Est GFR ( Amer) 7 Est GFR (Non-Af Amer) 6 POC Glucose (mg/dL) Random Glucose 129 H Lactic Acid 0.6 L Calcium 8.1 L Phosphorus Magnesium Total Bilirubin 0.6 AST 21 ALT 27 Alkaline Phosphatase 108 Total Protein 6.7 Albumin 3.2 L Globulin 3.5 Albumin/Globulin Ratio 0.9 L Procalcitonin 54.65 H PTH Intact Whole [place] Urine Color Urine Clarity Urine pH Ur Specific [place] Urine Protein Urine Glucose (UA) Urine Ketones Urine Blood Urine Nitrate Urine Bilirubin Urine Urobilinogen Ur Leukocyte Esterase Urine RBC (Auto) Urine Microscopic WBC Urine Bacteria Hep Bs Antigen Hep Bs Antibody Hep B Core IgM Ab 12/09/17 12/09/17 12/09/17 06:05 11:39 16:51 WBC RBC Hgb Hct MCV MCH MCHC RDW Plt Count MPV Neut % (Auto) Lymph % (Auto) [place] % (Auto) Eos % (Auto) Baso % (Auto) Neut # (Auto) Lymph # (Auto) [place] # (Auto) Eos # (Auto) Baso # (Auto) Neutrophils % (Manual) Band Neutrophils % Lymphocytes % (Manual) Monocytes % (Manual) Platelet Estimate Hypochromasia (manual) Poikilocytosis (manual Anisocytosis (manual) Microcytosis (manual) Ovalocytes Sodium Potassium Chloride Carbon Dioxide Anion Gap BUN Creatinine Est GFR ( Amer) Est GFR (Non-Af Amer) POC Glucose (mg/dL) 137 H 226 H 59 L Random Glucose Lactic Acid Calcium Phosphorus Magnesium Total Bilirubin AST ALT Alkaline Phosphatase Total Protein Albumin Globulin Albumin/Globulin Ratio Procalcitonin PTH Intact Whole [place] Urine Color Urine Clarity Urine pH Ur Specific [place] Urine Protein Urine Glucose (UA) Urine Ketones Urine Blood Urine Nitrate Urine Bilirubin Urine Urobilinogen Ur Leukocyte Esterase Urine RBC (Auto) Urine Microscopic WBC Urine Bacteria Hep Bs Antigen Hep Bs Antibody Hep B Core IgM Ab 12/09/17 12/10/17 12/10/17 21:14 05:20 11:05 WBC RBC Hgb Hct MCV MCH MCHC RDW Plt Count MPV Neut % (Auto) Lymph % (Auto) [place] % (Auto) Eos % (Auto) Baso % (Auto) Neut # (Auto) Lymph # (Auto) [place] # (Auto) Eos # (Auto) Baso # (Auto) Neutrophils % (Manual) Band Neutrophils % Lymphocytes % (Manual) Monocytes % (Manual) Platelet Estimate Hypochromasia (manual) Poikilocytosis (manual Anisocytosis (manual) Microcytosis (manual) Ovalocytes Sodium Potassium Chloride Carbon Dioxide Anion Gap BUN Creatinine Est GFR ( Amer) Est GFR (Non-Af Amer) POC Glucose (mg/dL) 142 H 131 H 204 H Random Glucose Lactic Acid Calcium Phosphorus Magnesium Total Bilirubin AST ALT Alkaline Phosphatase Total Protein Albumin Globulin Albumin/Globulin Ratio Procalcitonin PTH Intact Whole [place] Urine Color Urine Clarity Urine pH Ur Specific [place] Urine Protein Urine Glucose (UA) Urine Ketones Urine Blood Urine Nitrate Urine Bilirubin Urine Urobilinogen Ur Leukocyte Esterase Urine RBC (Auto) Urine Microscopic WBC Urine Bacteria Hep Bs Antigen Hep Bs Antibody Hep B Core IgM Ab Microbiology 12/07/17 11:38 Blood Blood Culture - Preliminary NO GROWTH AFTER 3 DAYS 12/07/17 22:04 Blood-Venous Blood Culture - Preliminary NO GROWTH AFTER 48 HOURS 12/07/17 22:04 Blood-Venous Blood Culture - Preliminary NO GROWTH AFTER 48 HOURS 12/08/17 19:00 Blood-Venous Blood Culture - Preliminary NO GROWTH AFTER 24 HOURS 12/08/17 18:30 Blood-Venous Blood Culture - Preliminary NO GROWTH AFTER 24 HOURS 12/08/17 09:39 Urine,Catheterized Urine Culture - Final No Growth (<1,000 CFU/ML) 12/07/17 13:40 Blood Blood Culture - Preliminary NO GROWTH AFTER 48 HOURS 12/07/17 17:00 Nose MRSA Culture (Admit) - Final MRSA NOT DETECTED Assessment and Plan (1) Chronic kidney disease with end stage renal failure on dialysis Status: Acute (2) [id number] renal failure Status: Acute (3) Hyperkalemia Status: Acute (4) Fever Status: Acute - Assessment and Plan (Free Text) Assessment: A/P- 72 year old female with PMH of DM II, ESRD on HD, admitted with sob and resp distress and fever. clinically much better. has remained afebrile. leukocytosis trending down. blood cx- negative x 6 UA- negative urine cx- neg high Pro-BNP pneumonia vs CHF exacerbation leukocytosis fever ESRD on HD chect CT report noted ( no lung findings other than mild atelectasis as per report). Plan- continue with zosyn and Vanco empirically for healthcare associated pneumonia. day #4 keep vanco trough between 10-15. continue IV abx for 1 more day. continue with zithromax as well, can be switched to oral zithromax. d/c zithromax tomm. HD as per renal team
--- NOTE | 2017-12-10 13:23 | CP.PCM.PN ---
Subjective - Date & Time of Evaluation Date of Evaluation: 12/10/17 Time of Evaluation: 15:27 - Subjective Subjective: sitting up feeling better no abdominal pain Objective - Vital Signs/Intake and Output Vital Signs (last 24 hours): Temp Pulse Resp BP Pulse Ox 98.5 F 76 20 148/71 96 12/10/17 12:41 12/10/17 12:41 12/10/17 12:41 12/10/17 12:41 12/10/17 12:41 - Medications Medications: Current Medications Acetaminophen (Tylenol 325mg Tab) 650 mg PO Q6 PRN PRN Reason: Pain, Mild (1-3) Last Admin: 12/07/17 22:48 Dose: 650 mg Albuterol/Ipratropium (Duoneb 3 Mg/0.5 Mg (3 Ml) Ud) 3 ml INH RQ6 PRN PRN Reason: Shortness of Breath Dextrose (Dextrose 50% Inj) 0 ml IV STAT PRN; Protocol PRN Reason: Hypoglycemia Protocol Dextrose (Glutose 15) 0 gm PO ONCE PRN; Protocol PRN Reason: Hypoglycemia Protocol Epoetin Sammy (Procrit) 4,000 unit IV TTS [facility] Last Admin: 12/09/17 09:30 Dose: 4,000 unit Glucagon (Glucagen Diagnostic Kit) 0 mg IM STAT PRN; Protocol PRN Reason: Hypoglycemia Protocol Heparin Sodium (Porcine) (Heparin) 5,000 units SC Q8 [facility] PRN Reason: Protocol Last Admin: 12/10/17 09:11 Dose: 5,000 units Azithromycin 500 mg/ Sodium (Chloride) 250 mls @ 250 mls/hr IVPB DAILY [facility] PRN Reason: Protocol Last Admin: 12/10/17 09:07 Dose: 250 mls/hr Vancomycin HCl 1 gm/ Sodium (Chloride) 250 mls @ 125 mls/hr IVPB TTS [facility] PRN Reason: Protocol Last Admin: 12/09/17 09:26 Dose: 125 mls/hr Piperacillin Sod/Tazobactam (Sod 2.25 gm/ Sodium Chloride) 100 mls @ 100 mls/ hr IVPB Q8@0500,1300,2100 [facility] PRN Reason: Protocol Last Admin: 12/10/17 04:46 Dose: 100 mls/hr Insulin Human Regular (Humulin R) 0 units SC ACHS [facility] PRN Reason: Protocol Last Admin: 12/10/17 06:34 Dose: Not Given Ketorolac Tromethamine (Toradol) 30 mg IVP Q6 PRN PRN Reason: Pain, moderate (4-7) Last Admin: 12/10/17 12:53 Dose: 30 mg Ondansetron HCl (Zofran Inj) 4 mg IVP Q6 PRN PRN Reason: Nausea/Vomiting Last Admin: 12/07/17 20:45 Dose: 4 mg Pantoprazole Sodium (Protonix Ec Tab) 40 mg PO DAILY [facility] Last Admin: 12/10/17 09:11 Dose: 40 mg Phenytoin Sodium (Dilantin) 100 mg PO TID [facility] Last Admin: 12/10/17 12:53 Dose: 100 mg - Labs Labs: 12/09/17 05:15 12/09/17 05:15 PT 10.6 Seconds (9.8-13.1) 12/07/17 11:24 INR 1.0 12/07/17 11:24 APTT 29.6 Seconds (25.6-37.1) 12/07/17 11:24 - Constitutional Appears: No Acute Distress - Eye Exam Eye Exam: Conjunctival injection - ENT Exam ENT Exam: Mucous Membranes Moist - Neck Exam Neck Exam: absent: Lymphadenopathy - Respiratory Exam Respiratory Exam: absent: Chest Wall Tenderness - Cardiovascular Exam Cardiovascular Exam: absent: Gallop, JVD, Rubs - GI/Abdominal Exam GI & Abdominal Exam: Soft, Normal Bowel Sounds - Extremities Exam Extremities Exam: absent: Calf Tenderness - Back Exam Back Exam: absent: CVA tenderness (L), CVA tenderness (R) - Neurological Exam Neurological Exam: Alert - Psychiatric Exam Psychiatric exam: Normal Affect - Skin Skin Exam: absent: Cyanosis Assessment and Plan (1) Acute pulmonary edema Status: Acute (2) Hyperkalemia Status: Acute (3) Sepsis Status: Acute (4) Chronic kidney disease with end stage renal failure on dialysis Assessment & Plan: end stage renal disease on dialysis TTS Patient admitted was volume overloaded and fever and leukocytosis Abdominal pain has not been subsided completely suggestive of diverticulitis? No vomiting reported PMHx of HTN, Diabetes, Gastritis, Chronic Kidney Disease, Seizures and End Stage Renal Disease (Hemodialysis TTS) the plan Leukocytosis improving patient receiving Zosyn and vancomycin and as azithromycin Hemodialysis TTS CT scan of the abdomen and pelvis none specific Glycemic control with diabetic management Phosphorus binders doing better Status: Acute
--- NOTE | 2017-12-10 23:14 | PQF ---
PROVIDER RESPONSE TEXT: It is volume overload not CHF REVIEWER QUERY TEXT: Heart Failure Acuity and Type AFTER WORKUP PLEASE CLARIFY THE TYPE AND ACUITY OF CHF IF KNOWN. Echo from 08/05/17: EF 60-65% , Moderate MR, Transmittal Doppler flow pattern is Grade I- abnormal re laxation pattern. See full report Given IV Lasix in the ER. Pro BNP 33,000 . Patient with ESRD Congestive Heart Failure is documented in the Medical Record. Please document the type and acuity (in cludes probable or suspected) Such as: Type: -- Combined systolic and diastolic (heart failure with reduced ejection fraction and diastolic) dysfu nction -- Diastolic (HFpEF) -- Systolic (HFrEF) -- Left heart failure -- Right heart failure -- Right heart failure due to left heart failure -- High output failure -- End stage heart failure -- Other, please specify Acuity: -- Acute -- Chronic -- Acute on chronic -- Other, please specify Also please document the underlying cause of the CHF (includes probable or suspected) The patient's Clinical Indicators include: C/O SOB. + febrile, elevated WBC, Pro BNP 33,000 . Patient with ESRD on hemodialysis CXR: Mild cardiomegaly. Suspect bibasilar atelectasis. Echo from 08/05/17: EF 60-65% , Moderate MR, Transmittal Doppler flow pattern is Grade I- abnormal re laxation pattern. See full report Given IV Lasix in the ER. Query created by: Ritika Lopez on 12/10/2017 8:59 AM Electronically signed by: Henrique Gutierrez MD 12/10/2017 11:11 PM
--- NOTE | 2017-12-11 02:13 | PN ---
DATE: 12/10/2017 DAILY PROGRESS NOTE SUBJECTIVE: The patient is seen today, 12/10/2017. She is still complaining of left-sided pain and low back pain. Pain was radiating also to the front of the abdomen. PHYSICAL EXAMINATION: VITAL SIGNS: Blood pressure 148/71, temperature 98.5, respiratory rate 20, and pulse 76. HEENT: Pupils are equal and reactive to light. Normal-appearing mucosa of the conjunctivae, oropharynx, and nasal membrane mucosa. NECK: Supple. No JVD. No carotid bruit. No lymph nodes. No thyromegaly. CHEST AND LUNGS: Bilateral symmetrical expansion. Good air exchange. No rales. No rhonchi. CARDIOVASCULAR SYSTEM: PMI not localized. S1, S2. No additional sounds. ABDOMEN: Normoactive bowel sounds. No tenderness. No organomegaly. No masses. EXTREMITIES: No cyanosis, no clubbing, no edema. CENTRAL NERVOUS SYSTEM: Alert, awake, oriented x2. No neurological deficit could be appreciated. 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 PLAN: Continue current medications. We will follow ID recommendations. Henrique Gutierrez MD
[2017-12-11] MEDS: Insulin Regular 100 units/ml SC SCH ×4 (08:09→21:31)
[2017-12-11] MEDS: Pantoprazole 40 mg EC Tab PO SCH (09:09)
[2017-12-11] MEDS: Epoetin Alfa 4000 UNIT/ML Inj IV SCH (18:32)
--- NOTE | 2017-12-11 22:07 | CP.PCM.PN ---
Subjective - Date & Time of Evaluation Date of Evaluation: 12/11/17 Time of Evaluation: 22:06 - Subjective Subjective: renal follow up note no complaints today vitals reviewed heent normal o pmoist no jvd s1s2 present no resp distress abd soft no edema ao times 3 skin onormal cooperative plan end stage renal disease on dialysis TTS HCAP htn DM seizure disorder sec hyperpth anemia Hemodialysis TTS lytes reviewed i have added phoslo tid with meals anemia epo with hd abx for hcap, dose for esrd bp ok Objective - Vital Signs/Intake and Output Vital Signs (last 24 hours): Temp Pulse Resp BP Pulse Ox 98.5 F 64 16 168/79 H 100 12/11/17 19:49 12/11/17 19:49 12/11/17 19:49 12/11/17 19:49 12/11/17 19:49 - Medications Medications: Current Medications Acetaminophen (Tylenol 325mg Tab) 650 mg PO Q6 PRN PRN Reason: Pain, Mild (1-3) Last Admin: 12/07/17 22:48 Dose: 650 mg Albuterol/Ipratropium (Duoneb 3 Mg/0.5 Mg (3 Ml) Ud) 3 ml INH RQ6 PRN PRN Reason: Shortness of Breath Dextrose (Dextrose 50% Inj) 0 ml IV STAT PRN; Protocol PRN Reason: Hypoglycemia Protocol Dextrose (Glutose 15) 0 gm PO ONCE PRN; Protocol PRN Reason: Hypoglycemia Protocol Epoetin Sammy (Procrit) 4,000 unit IV TTS [facility] Last Admin: 12/11/17 18:32 Dose: 4,000 unit Glucagon (Glucagen Diagnostic Kit) 0 mg IM STAT PRN; Protocol PRN Reason: Hypoglycemia Protocol Heparin Sodium (Porcine) (Heparin) 5,000 units SC Q8 [facility] PRN Reason: Protocol Last Admin: 12/11/17 16:49 Dose: 5,000 units Vancomycin HCl 1 gm/ Sodium (Chloride) 250 mls @ 125 mls/hr IVPB TTS [facility] PRN Reason: Protocol Last Admin: 12/11/17 18:33 Dose: 125 mls/hr Insulin Human Regular (Humulin R) 0 units SC ACHS [facility] PRN Reason: Protocol Last Admin: 12/11/17 21:31 Dose: Not Given Ketorolac Tromethamine (Toradol) 30 mg IVP Q6 PRN PRN Reason: Pain, moderate (4-7) Last Admin: 12/11/17 09:11 Dose: 30 mg Ondansetron HCl (Zofran Inj) 4 mg IVP Q6 PRN PRN Reason: Nausea/Vomiting Last Admin: 12/07/17 20:45 Dose: 4 mg Pantoprazole Sodium (Protonix Ec Tab) 40 mg PO DAILY [facility] [place] Last Admin: 12/11/17 09:09 Dose: 40 mg Phenytoin Sodium (Dilantin) 100 mg PO TID [facility] [place] Last Admin: 12/11/17 16:49 Dose: 100 mg - Labs Labs: 12/09/17 05:15 12/09/17 05:15 PT 10.6 Seconds (9.8-13.1) 12/07/17 11:24 INR 1.0 12/07/17 11:24 APTT 29.6 Seconds (25.6-37.1) 12/07/17 11:24
--- NOTE | 2017-12-12 03:05 | PN ---
DATE: 12/11/2017 SUBJECTIVE: The patient is seen today, 12/11/2017. She is having less back pain and abdominal pain. OBJECTIVE: VITAL SIGNS: Blood pressure is 158/68, temperature 98.1, respiratory rate 20, and pulse 72. HEENT: Pupils equal and reactive to light. Normal-appearing mucosa of the conjunctivae, oropharynx, and nasal membrane mucosa. NECK: Supple. No JVD. No carotid bruit. No lymph nodes. No thyromegaly. CHEST AND LUNGS: Bilateral symmetrical expansion. Good air exchange. No rales, no rhonchi. CARDIOVASCULAR SYSTEM: PMI not localized. S1, S2. No additional sounds. ABDOMEN: Normoactive bowel sounds. No tenderness. No organomegaly. No masses. EXTREMITIES: No cyanosis, no clubbing, no edema. BUTTON BROACHER: Alert, awake, oriented x2. No neurological deficit could be appreciated. ASSESSMENT: 1. Status post hyperkalemia. 2. End-stage renal disease, on hemodialysis. 3. Congestive heart failure/pneumonia. PLAN: Continue current antibiotics and current medications including insulin coverage with Accu-Cheks. Henrique Gutierrez MD
[2017-12-12] MEDS: Insulin Regular 100 units/ml SC SCH ×5 (06:33→21:40)
[2017-12-12] MEDS ORDERED: Calcium Acetate 667 MG Capsule PO SCH (08:00)
[2017-12-12] MEDS: Pantoprazole 40 mg EC Tab PO SCH (08:45)
[2017-12-13] MEDS ORDERED: Labetalol 5 mg/ml Inj 20ML IVP STA (05:07)
[2017-12-13] MEDS: Insulin Regular 100 units/ml SC SCH ×3 (07:03→16:44)
--- NOTE | 2017-12-13 08:06 | CP.PCM.PN ---
Subjective - Date & Time of Evaluation Date of Evaluation: 12/13/17 Time of Evaluation: 08:06 - Subjective Subjective: patient conscious and alert not in acute distress. Patient feeling much better no shortness of breath No abdominal pain Objective - Vital Signs/Intake and Output Vital Signs (last 24 hours): Temp Pulse Resp BP Pulse Ox 98.5 F 67 22 173/72 H 94 L 12/13/17 07:42 12/13/17 07:42 12/13/17 07:42 12/13/17 07:42 12/13/17 07:42 - Medications Medications: Current Medications Acetaminophen (Tylenol 325mg Tab) 650 mg PO Q6 PRN PRN Reason: Pain, Mild (1-3) Last Admin: 12/13/17 05:27 Dose: 650 mg Albuterol/Ipratropium (Duoneb 3 Mg/0.5 Mg (3 Ml) Ud) 3 ml INH RQ6 PRN PRN Reason: Shortness of Breath Dextrose (Dextrose 50% Inj) 0 ml IV STAT PRN; Protocol PRN Reason: Hypoglycemia Protocol Dextrose (Glutose 15) 0 gm PO ONCE PRN; Protocol PRN Reason: Hypoglycemia Protocol Epoetin Sammy (Procrit) 4,000 unit IV TTS [facility] Last Admin: 12/11/17 18:32 Dose: 4,000 unit Glucagon (Glucagen Diagnostic Kit) 0 mg IM STAT PRN; Protocol PRN Reason: Hypoglycemia Protocol Insulin Human Regular (Humulin R) 0 units SC ACHS [facility] PRN Reason: Protocol Last Admin: 12/13/17 07:03 Dose: 2 unit Lisinopril (Zestril) 20 mg PO DAILY [facility] Ondansetron HCl (Zofran Inj) 4 mg IVP Q6 PRN PRN Reason: Nausea/Vomiting Last Admin: 12/07/17 20:45 Dose: 4 mg Pantoprazole Sodium (Protonix Ec Tab) 40 mg PO DAILY [facility] Last Admin: 12/12/17 08:45 Dose: 40 mg Phenytoin Sodium (Dilantin) 100 mg PO TID [facility] Last Admin: 12/12/17 16:52 Dose: 100 mg - Labs Labs: 12/09/17 05:15 12/09/17 05:15 PT 10.6 Seconds (9.8-13.1) 12/07/17 11:24 INR 1.0 12/07/17 11:24 APTT 29.6 Seconds (25.6-37.1) 12/07/17 11:24 - Constitutional Appears: No Acute Distress - Eye Exam Eye Exam: Conjunctival injection - ENT Exam ENT Exam: Mucous Membranes Moist - Neck Exam Neck Exam: absent: Lymphadenopathy - Respiratory Exam Respiratory Exam: NORMAL BREATHING PATTERN. absent: Chest Wall Tenderness - Cardiovascular Exam Cardiovascular Exam: absent: Gallop, JVD, Rubs - GI/Abdominal Exam GI & Abdominal Exam: Soft, Normal Bowel Sounds - Extremities Exam Extremities Exam: absent: Calf Tenderness - Back Exam Back Exam: absent: CVA tenderness (L), CVA tenderness (R) - Neurological Exam Neurological Exam: Alert - Psychiatric Exam Psychiatric exam: Normal Affect - Skin Skin Exam: absent: Cyanosis Assessment and Plan (1) Acute pulmonary edema Status: Acute (2) Hyperkalemia Status: Acute (3) Sepsis Status: Acute (4) Chronic kidney disease with end stage renal failure on dialysis Assessment & Plan: HTN, Diabetes, , Chronic Kidney Disease,End Stage Renal Disease (Hemodialysis TTS) Seizures the plan Leukocytosis improving patient receiving antibiotics as per ID Hemodialysis TTS blood pressure elevated this morning she was given stat intravenous labetalol Add lisinopril and possible Lopressor Status: Acute
[2017-12-13] MEDS: Pantoprazole 40 mg EC Tab PO SCH (08:20)
[2017-12-13] MEDS ORDERED: NIFEdipine 60 mg ER Tab PO SCH (09:00)
[2017-12-13 10:07] LABS: HEMOGLOBIN 9.6 g/dL (12.0-16.0); MEAN CELL VOLUME 82.9 fl (81.0-99.0); MEAN CORPUSCULAR HEMOGLOBIN 26.6 pg (27.0-31.0); MEAN CORPUSCULAR HGB CONC 32.1 g/dL (33.0-37.0); RBC 3.6 Mil/uL (3.80-5.20); RED CELL DISTRIBUTION WIDTH 16.9 % (11.5-14.5); WHITE BLOOD COUNT 11.2 K/uL (4.8-10.8)
[2017-12-13 10:16] LABS: CALCIUM 9.1 mg/dL (8.4-10.2)
--- NOTE | 2017-12-13 11:58 | CP.PCM.PN ---
Subjective - Date & Time of Evaluation Date of Evaluation: 12/13/17 Time of Evaluation: 11:58 - Subjective Subjective: ID note- pt. seen and examined. no new events. nor cough and denies any sob. afebrile Objective - Vital Signs/Intake and Output Vital Signs (last 24 hours): Temp Pulse Resp BP Pulse Ox 98.5 F 67 22 173/72 H 94 L 12/13/17 07:42 12/13/17 10:21 12/13/17 07:42 12/13/17 10:21 12/13/17 07:42 - Medications Medications: Current Medications Acetaminophen (Tylenol 325mg Tab) 650 mg PO Q6 PRN PRN Reason: Pain, Mild (1-3) Last Admin: 12/13/17 05:27 Dose: 650 mg Albuterol/Ipratropium (Duoneb 3 Mg/0.5 Mg (3 Ml) Ud) 3 ml INH RQ6 PRN PRN Reason: Shortness of Breath Dextrose (Dextrose 50% Inj) 0 ml IV STAT PRN; Protocol PRN Reason: Hypoglycemia Protocol Dextrose (Glutose 15) 0 gm PO ONCE PRN; Protocol PRN Reason: Hypoglycemia Protocol Epoetin Sammy (Procrit) 4,000 unit IV TTS [facility] Last Admin: 12/11/17 18:32 Dose: 4,000 unit Glucagon (Glucagen Diagnostic Kit) 0 mg IM STAT PRN; Protocol PRN Reason: Hypoglycemia Protocol Insulin Human Regular (Humulin R) 0 units SC ACHS [facility] PRN Reason: Protocol Last Admin: 12/13/17 07:03 Dose: 2 unit Lisinopril (Zestril) 20 mg PO DAILY [facility] Last Admin: 12/13/17 10:21 Dose: 20 mg Nifedipine (Procardia Xl) 60 mg PO DAILY [facility] Last Admin: 12/13/17 10:21 Dose: 60 mg Ondansetron HCl (Zofran Inj) 4 mg IVP Q6 PRN PRN Reason: Nausea/Vomiting Last Admin: 12/07/17 20:45 Dose: 4 mg Pantoprazole Sodium (Protonix Ec Tab) 40 mg PO DAILY [facility] Last Admin: 12/13/17 08:20 Dose: 40 mg Phenytoin Sodium (Dilantin) 100 mg PO TID [facility] Last Admin: 12/13/17 08:20 Dose: 100 mg - Labs Labs: 12/13/17 09:30 12/13/17 09:30 PT 10.6 Seconds (9.8-13.1) 12/07/17 11:24 INR 1.0 12/07/17 11:24 APTT 29.6 Seconds (25.6-37.1) 12/07/17 11:24 - Additional Findings Additional findings: - Constitutional Appears: No Acute Distress - Head Exam Head Exam: ATRAUMATIC - Eye Exam Eye Exam: EOMI, PERRL - ENT Exam ENT Exam: Normal Oropharynx - Neck Exam Neck exam: Positive for: Full Rom - Respiratory Exam Additional comments: better breath sounds b/l no wheezing - Cardiovascular Exam Cardiovascular Exam: RRR, +S1, +S2 - GI/Abdominal Exam GI & Abdominal Exam: Normal Bowel Sounds, Soft Additional comments: NT, ND no guarding, no rebound no CVA tenderness - Extremities Exam Extremities exam: Positive for: normal inspection - Neurological Exam Additional comments: AAO x 3 Laboratory Results - last 72 hr 12/08/17 12/10/17 12/10/17 18:30 15:53 22:04 WBC RBC Hgb Hct MCV MCH MCHC RDW Plt Count Sodium Potassium Chloride Carbon Dioxide Anion Gap BUN Creatinine Est GFR ( Amer) Est GFR (Non-Af Amer) POC Glucose (mg/dL) 169 H 127 H Random Glucose Lactic Acid Calcium Mycoplasma pneumon IgG 2.18 H Mycoplasma pneumon IgM 611 12/11/17 12/11/17 12/11/17 05:30 11:37 15:48 WBC RBC Hgb Hct MCV MCH MCHC RDW Plt Count Sodium Potassium Chloride Carbon Dioxide Anion Gap BUN Creatinine Est GFR ( Amer) Est GFR (Non-Af Amer) POC Glucose (mg/dL) 110 227 H 151 H Random Glucose Lactic Acid Calcium Mycoplasma pneumon IgG Mycoplasma pneumon IgM 12/11/17 12/12/17 12/12/17 20:55 05:15 10:53 WBC RBC Hgb Hct MCV MCH MCHC RDW Plt Count Sodium Potassium Chloride Carbon Dioxide Anion Gap BUN Creatinine Est GFR ( Amer) Est GFR (Non-Af Amer) POC Glucose (mg/dL) 71 154 H 209 H Random Glucose Lactic Acid Calcium Mycoplasma pneumon IgG Mycoplasma pneumon IgM 12/12/17 12/12/17 12/13/17 16:08 21:00 05:01 WBC RBC Hgb Hct MCV MCH MCHC RDW Plt Count Sodium Potassium Chloride Carbon Dioxide Anion Gap BUN Creatinine Est GFR ( Amer) Est GFR (Non-Af Amer) POC Glucose (mg/dL) 154 H 112 H 153 H Random Glucose Lactic Acid Calcium Mycoplasma pneumon IgG Mycoplasma pneumon IgM 12/13/1718 12/13/17 09:30 09:30 09:30 WBC 11.2 H RBC 3.60 L Hgb 9.6 L Hct 29.8 L MCV 82.9 MCH 26.6 L MCHC 32.1 L RDW 16.9 H Plt Count 270 D Sodium 136 Potassium 4.2 Chloride 97 L Carbon Dioxide 31 H Anion Gap 12 BUN 33 H Creatinine 5.9 H Est GFR ( Amer) 9 Est GFR (Non-Af Amer) 7 POC Glucose (mg/dL) Random Glucose 82 Lactic Acid 1.0 Calcium 9.1 Mycoplasma pneumon IgG Mycoplasma pneumon IgM Microbiology 12/07/17 22:04 Blood-Venous Blood Culture - Final NO GROWTH AFTER 5 DAYS 12/07/17 22:04 Blood-Venous Gram Stain - Final TEST NOT PERFORMED 12/07/17 22:04 Blood-Venous Blood Culture - Final NO GROWTH AFTER 5 DAYS 12/07/17 22:04 Blood-Venous Gram Stain - Final TEST NOT PERFORMED 12/08/17 19:00 Blood-Venous Blood Culture - Preliminary NO GROWTH AFTER 4 DAYS 12/08/17 18:30 Blood-Venous Blood Culture - Preliminary NO GROWTH AFTER 4 DAYS 12/07/17 13:40 Blood Blood Culture - Final NO GROWTH AFTER 5 DAYS 12/07/17 13:40 Blood Gram Stain - Final TEST NOT PERFORMED 12/07/17 11:38 Blood Blood Culture - Final NO GROWTH AFTER 5 DAYS 12/07/17 11:38 Blood Gram Stain - Final TEST NOT PERFORMED 12/09/17 18:20 Naris MRSA Culture (Admit) - Final MRSA NOT DETECTED 12/08/17 09:39 Urine,Catheterized Urine Culture - Final No Growth (<1,000 CFU/ML) 12/07/17 17:00 Nose MRSA Culture (Admit) - Final MRSA NOT DETECTED Assessment and Plan (1) Chronic kidney disease with end stage renal failure on dialysis Status: Acute (2) [id number] renal failure Status: Acute (3) Hyperkalemia Status: Acute (4) Fever Status: Acute - Assessment and Plan (Free Text) Assessment: A/P- 72 year old female with PMH of DM II, ESRD on HD, admitted with sob and resp distress and fever. clinically much better. has remained afebrile. leukocytosis almost resolved, much improved. blood cx- negative x 6 UA- negative urine cx- neg high Pro-BNP mycoplasma IGM- neg Plan- had completed 5 days of empiric IV vanco and zosyn to cover for ? HAP. completed 3 days of zithromax as well. no need for further IV abx at this time. HD as per renal team. CHF management as per primary doc and cardiology.
[2017-12-13 12:34] VITALS: PULSE 81; RESP 20; TEMP 98; O2SAT 98
[2017-12-13 14:11] VITALS: BP 148/66
[2017-12-14 01:55] LABS: PHENYTOIN,FREE 0.6 mg/L (1.0-2.0)
--- NOTE | 2017-12-14 02:35 | PN ---
DATE: 12/12/2017 SUBJECTIVE: The patient was seen on 12/12/2017. She was not in any cardiopulmonary distress. OBJECTIVE: VITAL SIGNS: Blood pressure was 170/75, temperature 98.3, respiratory rate 20, and pulse 71. HEENT: Pupils equal and reactive to light. Normal-appearing mucosa of the conjunctivae, oropharynx, and nasal membrane mucosa. NECK: Supple. No JVD. No carotid bruit. No lymph node. No thyromegaly. CHEST AND LUNGS: Bilateral symmetrical expansion. Good air exchange. No rales, no rhonchi. CARDIOVASCULAR SYSTEM: PMI not localized. S1, S2. No additional sounds. ABDOMEN: Normoactive bowel sounds. No tenderness. No organomegaly. No masses. EXTREMITIES: No cyanosis, no clubbing, no edema. MARKET STALL VENDOR: Alert, awake, oriented x2 and moves all extremities equally. No neurological deficit could be appreciated. ASSESSMENT: 1. Congestive heart failure/pneumonia. 2. Status post hyperkalemia. 3. End-stage renal disease, on hemodialysis. 4. Hypertension. PLAN: Continue current medications and antibiotics as per ID. If patient is stable, will be discharged tomorrow to continue hemodialysis as an outpatient. Henrique Gutierrez MD
--- NOTE | 2017-12-14 07:58 | DS ---
REASON FOR ADMISSION: This is a 72-year-old female with history of multiple medical problems including end-stage renal disease, on hemodialysis, who was admitted for shortness of breath secondary to volume overload, found also to have hyperkalemia. COURSE OF HOSPITALIZATION: The patient was admitted and treated for the hyperkalemia. The patient had leukocytosis and fever on admission, and she was treated for healthcare-related pneumonia. The patient had an ID consult done by Dr. Lambert. The patient responded well to the antibiotics. The patient continued on hemodialysis as per Dr. Talamantes, during this admission. The patient was discharged home in a stable condition to follow with her primary care physician, Dr. Zenia Gu. FINAL DIAGNOSES: Pneumonia; congestive heart failure; hyperkalemia; end-stage renal disease, on hemodialysis; hypertension. Henrique Gutierrez MD
--- NOTE | 2017-12-16 07:36 | PQF ---
PROVIDER RESPONSE TEXT: Yes patient had sepsis secondary to pneumonia REVIEWER QUERY TEXT: Rule Out Sepsis Clarification To Rule out Sepsis is documented in the Medical Record. Please clarify whether: -- Patient has sepsis - Please document confirmed, suspected or probable causative organism - Please document confirmed, suspected or probable localized infection - Please clarify if sepsis is related to a device - Please clarify if sepsis was present on admission -- Sepsis was ruled out (include corresponding diagnosis for patient?s clinical picture and treatment ) -- Patient had sepsis which is resolved -- Other, please specify The patient's Clinical Indicators include: Admitted with SOB. ER: Sepsis, acute on chronic renal failure, CHF exacerbation, Hyperkalemia ID: Asked to see this patient for R/O Sepsis. Etiology of fever unclear at this time however pneumoni a likely, ? HAP Renal: Sepsis, acute pulmonary edema, hyperkalemia, ESRD ICU: Severe sepsis without shock r/o intra abdominal/lung pathology, AMS 2* metabolic encephalopathy : r/O Sepsis encephalopathy, occult seizure activity, cva, Fluid overload WBC 11.3-> 21.8-> 18.3, L shift 6% BANDS, Lactic Acid 2.4 CXR: Cardiomegaly, bibasilar atelectasis BLOOD and URINE CS No growth Rx: IVAB TEMP: 102.6, 100.8, 100.8, 100.1, 99.1, 97.7, 99.1 HR: 85, 85, 93, 90, 98, 89, 101, 97, 100, 94, 93, 93, 85, 82, 81 BP: 137/77, 164/68, 161, 62, 147/66, 148/68, 135/76, 145/71 R: 39, 39, 27, 21, 25, 22, 17, 28, 24, 25, 22, 16 Query created by: Ritika Lopez on 12/13/2017 2:21 PM Electronically signed by: Henrique Gutierrez MD 12/16/2017 7:33 AM
== END 2017-12-13 19:15 | disposition home or self-care (01) | DRG 871 ==
LOC: H.ER 10:45 → H.ERHOLD 12:30 → H.ICU/CCU 14:28 → H.TEL 12-09 15:17
PROVIDERS: ADMIT Internal Medicine; ATTEND Internal Medicine
PROC: 5A1D70Z Performance of Urinary Filtration, Intermittent, Less than 6 Hours Per Day (ICD-10-PCS; principal; 2017-12-07)
DX: A41.9 Sepsis, unspecified organism (principal); N18.6 End stage renal disease; J81.0 Acute pulmonary edema; J18.9 Pneumonia, unspecified organism; J44.0 Chronic obstructive pulmonary disease with (acute) lower respiratory infection; J98.11 Atelectasis; N17.9 Acute kidney failure, unspecified; N25.81 Secondary hyperparathyroidism of renal origin; I12.0 Hypertensive chronic kidney disease with stage 5 chronic kidney disease or end stage renal disease; E87.5 Hyperkalemia; Z99.2 Dependence on renal dialysis; E87.79 Other fluid overload; E11.22 Type 2 diabetes mellitus with diabetic chronic kidney disease; G40.909 Epilepsy, unspecified, not intractable, without status epilepticus; Z85.43 Personal history of malignant neoplasm of ovary; Z91.15 Patient's noncompliance with renal dialysis; E83.39 Other disorders of phosphorus metabolism; K29.70 Gastritis, unspecified, without bleeding; M54.5 Low back pain; R06.03 Acute respiratory distress